=== PATIENT | female | born 1965 | race Caucasian/White ===

== ENCOUNTER → 2016-12-21 | Outpatient (CLI) | payer OTHER ==
[2016-12-21 15:33] VITALS: BP 126/68; PULSE 77; RESP 20; TEMP 98.2; BMI 38.5
--- NOTE | 2016-12-21 15:59 | P.HPBAR ---
Bariatric H&P - History & Physicial H&P Date: 12/21/16 History & Physicial: Visit/CC: wants her band out Patient initial contact: Initial weight: 98.566 kg Initial weight in pounds: 217.30 Height: 5 ft 3 in Initial BMI: 38.5 Last weight: Current weight: 98.566 kg Current weight in pounds: 217.30 Current BMI: 38.5 [place] body weight (based on NIH guidelines): 52.163 kg Excess body weight loss: 0.0% The patient is a 51 year-old F who presents for Bariatric Assessment. Patient here today for evaluation of lap band. Patient had her lap band initially placed in 2008. Patient has had poor follow-up recently. Despite previously following the prescribed dietary and exercise regimen the patient has had marginal weight loss. She believes that she started her weight loss journey in the to 60 range. She was as low as the low 200 range currently she weighs 2: 15. Patient has had episodes of dysphagia and occasional vomiting. Denies pain. No seen and reflux. The patient is interested in band removal and possible conversion. Review of Systems The patient denies any acute changes in vision or hearing, no dysphagia, no chest pain or shortness of breath, no dysuria or hematuria, no headache, no runny nose, no rectal bleeding or melena, no unexplained weight loss Past Medical History Past Medical History: No Reported History History of Any Multi-Drug Resistant Organisms: None Reported Past Surgical History: Bariatric Surgery, Cholecystectomy, Tubal Ligation Additional Past Surgical History / Comment(s): lap band 2008 Past Psychological History: Anxiety, Depression Smoking Status: Former smoker Past Alcohol Use History: None Reported Past Drug Use History: None Reported Surgical - Exam Vital Signs Temp Pulse Resp BP 98.2 F 77 20 126/68 12/21/16 15:29 12/21/16 15:29 12/21/16 15:29 12/21/16 15:29 Physical exam: General: Well-developed, well-nourished HEENT: Normocephalic, sclerae nonicteric Abdomen: Nontender, nondistended Extremities: No edema Neuro: Alert and oriented Bariatric Assessment & Plan (1) Morbid obesity Narrative/Plan: Patient's band will be emptied because of her ongoing issues with dysphagia. The patient has artery attended a bariatric seminar. Options of bypass and sleeve gastrectomy as options for conversion were discussed in detail. The patient is not interested in gastric bypass at this point. We'll discuss her case with our billing department to determine appropriate coverage for conversion. The patient's lap band port was palpated. The site was aseptically prepped. 1% lidocaine was infiltrated into the subcutaneous tissues through a diabetic syringe. The Curry needle was advanced into the port. Aspiration took place. A total of 8 ml of fluid was evacuated. Pressure was held and a sterile dressing was applied. Status: Acute Bariatric Checklist Checklist: Plan: Checklist: EGD: 1. Hiatal hernia: 2. H. Pylori: HgbA1c: Vitamin D: Smoking: Former smoker Primary care physician referral: Dr Gibbs Psychiatry clearance: Cardiology clearance: Sleep study: Diet journal: VTE risk score: VTE risk level: Rehab needs at discharge:
== END | disposition home or self-care (01) ==
LOC: BARWHC3 14:58
PROVIDERS: ATTEND Surgery
DX: E66.01 Morbid (severe) obesity due to excess calories (principal); F32.9 Major depressive disorder, single episode, unspecified; F41.9 Anxiety disorder, unspecified; Z87.891 Personal history of nicotine dependence
CPT/HCPCS: 99212

== ENCOUNTER 2017-02-11 10:22 | Day surgery (SDC) | payer OTHER ==
[2017-02-09 15:04] VITALS: BMI 41.1
[~2017-02-11 10:22] MED LIST: LACTATED RINGERS 1,000 ML IV SCH
[2017-02-11 12:03] VITALS: RESP 16; TEMP 98.3
[2017-02-11] MEDS ORDERED: GLYCOPYRROLATE 0.2 MG/ML 2 ML VIAL ONE (12:24)
[2017-02-11] MEDS ORDERED: LIDOCAINE 1% INJ 10MG/ML (20 ML MDV) ONE (12:24)
[2017-02-11] MEDS ORDERED: PROPOFOL 10 MG/ML 20 ML VIAL IV ONE (12:24)
--- NOTE | 2017-02-11 12:25 | P.GSHP ---
History of Present Illness H&P Date: 02/11/17 Chief Complaint: GERD Patient here today for upper endoscopy. She has mild reflux at times. She is here as a presurgical workup also for upcoming band removal and sleeve gastrectomy. She has done well after her band was emptied with no further dysphagia. Reflux improved as well. Past Medical History Past Medical History: No Reported History History of Any Multi-Drug Resistant Organisms: None Reported Past Surgical History: Bariatric Surgery, Cholecystectomy, Tubal Ligation Additional Past Surgical History / Comment(s): lap band 2008. COLONOSCOPY Past Anesthesia/Blood Transfusion Reactions: No Reported Reaction Smoking Status: Former smoker - Past Family History Mother Family Medical History: Cancer Father Family Medical History: Cancer Medications and Allergies Home Medications Medication Instructions Recorded Confirmed Type Cholecalciferol [Vitamin D3] 1,000 mg PO DAILY 04/07/16 02/09/17 History Escitalopram [Lexapro] 10 mg PO HS 04/07/16 02/09/17 History Multivitamins, Thera [Multivitamin] 1 each PO DAILY 04/07/16 02/09/17 History Niacin (Inositol Niacinate) 50 mg PO DAILY 04/07/16 02/09/17 History [Niacin Flush Free 500 mg Cap] buPROPion HCL [Wellbutrin XL] 300 mg PO DAILY 04/07/16 02/09/17 History Allergies Allergy/AdvReac Type Severity Reaction Status Date / Time No Known Allergies Allergy Verified 02/11/17 12:03 Surgical - Exam Vital Signs Temp Pulse Resp BP Pulse Ox 98.3 F 74 16 143/82 97 02/11/17 12:01 02/11/17 12:01 02/11/17 12:01 02/11/17 12:01 02/11/17 12:01 Physical exam: General: Well-developed, well-nourished HEENT: Normocephalic, sclerae nonicteric Abdomen: Nontender, nondistended Extremities: No edema Neuro: Alert and oriented Assessment and Plan (1) GERD (gastroesophageal reflux disease) Narrative/Plan: Will proceed with upper endoscopy at this time. Status: Acute
--- NOTE | 2017-02-11 12:35 | P.PCN ---
Date of Procedure: 02/11/17 Procedure(s) Performed: Preoperative Dx: GERD, presurgical Postoperative Dx: Mild gastritis Procedure: EGD with Bx Anesthesia: Sedation Endoscopist: Dr. Lozoya Specimens: Antrum Endoscopic Procedure: The patient was on the endoscopy table in the left decubitus position. The Olympus gastroscope was inserted into the oropharynx and passed under direct visualization to the region of the third portion of the duodenum. From that point the scope was slowly withdrawn inspecting all surfaces carefully. There were no neoplastic inflammatory or polypoid lesions throughout the duodenum. The pylorus was widely patent. The stomach was carefully inspected. There was gastritis present. A biopsy of the antrum took place to rule out H. pylori. Retroflexion revealed a normal hiatus and normal band plication. The esophagus was then carefully examined. There were no neoplastic inflammatory or polypoid lesions throughout the visualized esophagus. The patient was then taken to the recovery room in stable condition per anesthesia guidelines. Recommendations: Await biopsies results. Follow-up in the bariatric clinic
[2017-02-11 12:57] VITALS: BP 131/79
[2017-02-11 12:58] VITALS: PULSE 72
== END 2017-02-11 13:11 | disposition home or self-care (01) ==
LOC: ORWHC2ENDO 10:22
PROVIDERS: ATTEND Surgery
DX: K21.9 Gastro-esophageal reflux disease without esophagitis (principal); K29.50 Unspecified chronic gastritis without bleeding; E66.01 Morbid (severe) obesity due to excess calories; Z68.41 Body mass index [BMI] 40.0-44.9, adult; Z98.84 Bariatric surgery status; Z87.891 Personal history of nicotine dependence; Z79.899 Other long term (current) drug therapy
CPT/HCPCS: 43239; 88305; 88342; J2001; J2704

== ENCOUNTER → 2017-02-21 | Outpatient (CLI) | payer OTHER ==
--- NOTE | 2017-02-21 13:10 | MM ---
Reason for exam: screening (asymptomatic). Last mammogram was performed 1 year ago. History: Patient is postmenopausal. Physical Findings: A clinical breast exam by your physician is recommended on an annual basis and results should be correlated with mammographic findings. MG Screening Mammo w CAD Bilateral CC and MLO view(s) were taken. Prior study comparison: February 20, 2016, bilateral MG 3d screening mammo w/cad. February 18, 2015, bilateral MG screening mammo w CAD. There are scattered fibroglandular densities. Finding: There are typically benign round calcifications in both breasts. There is no discrete abnormality. ASSESSMENT: Benign, BI-RAD 2 RECOMMENDATION: Routine screening mammogram of both breasts in 1 year.
== END | disposition home or self-care (01) ==
LOC: RADMAMWWP 07:51
PROVIDERS: ATTEND Family Medicine
DX: Z12.31 Encounter for screening mammogram for malignant neoplasm of breast (principal)

== ENCOUNTER 2017-03-04 07:45 | Inpatient (IN) | payer OTHER ==
[~2017-03-04 07:45] MED LIST changes: +DEXAMETHASONE SOD PHOSPHATE 10 MG/ML 1 ML VIAL IV ONE; +METHYLENE BLUE 30 MG in DEXTROSE 5% IN WATER 500 ML IRRIGATION ONE; +MIDAZOLAM 2 MG/2 ML VIAL IV PRN; +ONDANSETRON 4 MG/2 ML VIAL IVP ONE; +Pre Op ABX Message 1 EACH MISC MISCELLANE ONE; +SCOPOLAMINE 1.5MG/72HR PATCH TRANSDERM ONE; +ceFAZolin 2 GM in SODIUM CHLORIDE 0.9% 100 ML IVPB ONE
--- NOTE | 2017-03-04 09:38 | P.GSHP ---
History of Present Illness H&P Date: 03/04/17 Chief Complaint: Morbid obesity Patient is well known to our service. She had a lap band placed in 2008. She' s had troubles with dysphagia and vomiting. Her weight loss has been marginal. She is scheduled today for band removal and sleeve gastrectomy. Her recent upper endoscopy showed no hiatal hernia. Patient has a history of hypertension , arthritis, and chronic back pain. Past Medical History Past Medical History: No Reported History Additional Past Medical History / Comment(s): varicose veins History of Any Multi-Drug Resistant Organisms: None Reported Past Surgical History: Bariatric Surgery, Cholecystectomy, Tubal Ligation Additional Past Surgical History / Comment(s): lap band 2008 Past Anesthesia/Blood Transfusion Reactions: No Reported Reaction, Motion Sickness Additional Past Anesthesia/Blood Transfusion Reaction / Comment(s): no hx blood transfusion Smoking Status: Former smoker - Past Family History Mother Family Medical History: Cancer Father Family Medical History: Cancer Medications and Allergies Home Medications Medication Instructions Recorded Confirmed Type Cholecalciferol [Vitamin D3] 2,000 unit PO DAILY 04/07/16 02/25/17 History Escitalopram [Lexapro] 10 mg PO HS 04/07/16 02/25/17 History Multivitamins, Thera [Multivitamin] 1 each PO DAILY 04/07/16 02/25/17 History Niacin (Inositol Niacinate) 500 mg PO DAILY 04/07/16 02/25/17 History [Niacin Flush Free 500 mg Cap] buPROPion XL [Wellbutrin Xl] 150 mg PO QAM 02/25/17 02/25/17 History Allergies Allergy/AdvReac Type Severity Reaction Status Date / Time No Known Allergies Allergy Verified 02/25/17 15:01 Surgical - Exam Physical exam: General: Well-developed, well-nourished HEENT: Normocephalic, sclerae nonicteric Abdomen: Nontender, nondistended Extremities: No edema Neuro: Alert and oriented Assessment and Plan (1) Morbid obesity Narrative/Plan: Will proceed with sleeve gastrectomy and band removal at this time. Risks of bleeding, infection, stricture, vomiting, leak, abscess, fistula formation, poor weight loss, reflux, conversion, IN, PE, DVT, and were discussed. She understands and wishes to proceed. Status: Acute Code(s): E66.01 - MORBID (SEVERE) OBESITY DUE TO EXCESS CALORIES SNOMED Code(s): 104762586
[2017-03-04] MEDS ORDERED: LIDOCAINE 1% 20 ML VIAL (10MG/ML) FOR IV START INTRADERMA ONE (12:07)
[2017-03-04] MEDS ORDERED: ENOXAPARIN 40 MG/0.4 ML SYRINGE SQ ONE (13:00)
[2017-03-04] MEDS ORDERED: NEOSTIGMINE 1 MG/ML 10 ML VIAL ONE (13:09)
[2017-03-04] MEDS ORDERED: SUCCINYLCHOLINE CHLORIDE 100 MG/5 ML SYR IV ONE (13:09)
[2017-03-04] MEDS ORDERED: PROPOFOL 10 MG/ML 20 ML VIAL IV ONE (13:09)
[2017-03-04] MEDS ORDERED: ePHEDrine SULFATE/0.9% NACL/PF 50 MG/5 ML SYRINGE IV ONE (13:09)
[2017-03-04] MEDS ORDERED: LIDOCAINE 1% INJ 10MG/ML (20 ML MDV) ONE (13:09)
[2017-03-04] MEDS ORDERED: GLYCOPYRROLATE 0.2 MG/ML 2 ML VIAL ONE (13:09)
[2017-03-04] MEDS ORDERED: METHYLENE BLUE 10 MG/ML (10 ML VIAL) ONE (13:09)
[2017-03-04] MEDS ORDERED: MIDAZOLAM 2 MG/2 ML VIAL ONE (13:09)
[2017-03-04] MEDS ORDERED: fentaNYL (PF) 50 MCG/ML 2 ML AMP ONE (13:09)
[2017-03-04] MEDS ORDERED: ROCURONIUM BROMIDE 10 MG/ML 10 ML VIAL IV ONE (13:09)
[2017-03-04] MEDS ORDERED: BUPIVACAINE (PF) 0.25% 30 ML VIAL SQ ONE ×3 (13:43)
[2017-03-04] MEDS ORDERED: LACTATED RINGERS 1,000 ML IV ONE (14:43)
[2017-03-04] MEDS: HYDROmorphone 0.5 MG/0.5 ML SYRINGE IVP PRN ×4 (16:07→16:31)
[2017-03-04] MEDS ORDERED: HYDROmorphone 1 MG/ML 1 ML SYRINGE IVP PRN (16:49)
[2017-03-04] MEDS ORDERED: diphenhydrAMINE 50 MG/ML 1 ML VIAL IVP PRN (16:49)
[2017-03-04] MEDS ORDERED: SIMETHICONE 40 MG/0.6 ML DROPS 2,000 MG/30 ML BOTTLE PO PRN (16:49)
[2017-03-04] MEDS ORDERED: NALOXONE 0.4 MG/ML 1 ML VIAL IV PRN (16:49)
[2017-03-04] MEDS ORDERED: HYOSCYAMINE ORAL DROPS 1.875 MG/15 ML BOTTLE PO PRN (16:49)
--- NOTE | 2017-03-04 16:58 | P.OP ---
Date of Procedure: 03/04/17 Procedure(s) Performed: PREOPERATIVE DIAGNOSIS: Morbid obesity, hypertension, arthritis, back pain POSTOPERATIVE DIAGNOSIS: Same PROCEDURE: Laparoscopic sleeve gastrectomy SURGEON: Devora EBL: Minimal ANESTHESIA: General COMPLICATIONS: None OPERATIVE PROCEDURE: Patient was placed in the operating table in the supine position. She was placed under general anesthesia at that time. The abdomen was prepped and draped in sterile fashion after the patient was placed in lithotomy. The previous port incision was re-incised. The port was able to be removed using the cautery. Through this site a 5 mm optical trocar was used to enter the abdominal cavity. Insufflation took place to 15 millimeters mercury. The patient had adhesions in the abdomen. This was related to the prior lap band placement and also open cholecystectomy. A 5 mm optical trocar was placed in the left lateral upper quadrant as well as a 15 mm trocar in the supraumbilical location. Through these 3 trochars I was able to lyse adhesions using both blunt dissection and the LigaSure device. Additional 5 mm trocar was then placed in the right upper quadrant. An additional right subxiphoid 5 mm trocar was then placed under direct visualization and then removed. Later during the procedure and additional 5 mm trocar was placed superior to the port incision to help with our visualization of the hiatus and proximal stomach. The liver was retracted using a medium Alex liver retractor through the right subxiphoid trocar site. The adhesions between the lap band and the posterior aspect of the left lobe of the liver was divided using both blunt dissection and cautery. The band plication was then fully divided using both sharp dissection and blunt dissection. The hiatus was inspected. The patient had no visible hiatal hernia At that point I moved to the mid aspect of the greater curvature the stomach. The short gastric vasculature was divided using a LigaSure device proximally. I then switched and divided the short gastrics distally to a 3-4 cm from the pylorus. The dissection took place up to the left diaphragmatic crura at that point. The posterior short gastrics were likewise divided using the LigaSure device. The posterior lateral band plication was taken down as well as this time. The thick fibrous peel on the gastric wall was removed sharply. Once the stomach was fully mobilized the blunt tipped 40-[place] bougie dilator was advanced into the stomach and advanced all the way to the prepyloric location. A black echelon 60 stapler was utilized and fired tangentially across the antrum taking care to avoid narrowing at the incisura angularis. Subsequent firings of the stapler took place. A total of 4 green echelon 60 staplers with seam guard took place proximally staying on the outer edge of our dilator. The oral gastric tube was reinserted. The stomach was insufflated with approximately 100 mL of methylene blue. No evidence of leak or obstruction was seen. The distal aspect of the sleeve was then reapproximated to the gastrosplenic and gastrocolic ligament using a short running 2-0 strata fix suture. This was done to prevent kinking or twisting of the sleeve. The stomach remnant and lap band was removed from the 15 mm trocar site without difficulty. The fascia at the 15 more site was closed using interrupted 0 Vicryl sutures with the laparoscopic suture passer and Jonel Lit technique. The insufflation was evacuated. The subcutaneous fat at the previous port incision was closed using 3-0 Vicryl sutures. The skin at all 6 incisions were closed using 4-0 Monocryl sutures. Steri-Strips and sterile dressings were then applied. DISPOSITION: Stable to recovery room
[2017-03-04 17:41] VITALS: BMI 39.3
[2017-03-04] MEDS: ALBUTEROL NEBULIZED 2.5 MG/3 ML INHALATION SCH (19:13)
--- NOTE | 2017-03-04 19:19 | P.CONS ---
History of Present Illness - Reason for Consult Perioperative consultation management - History of Present Illness Patient was admitted for lab and removal and sleeve gastrectomy patient successfully underwent surgery patient is to come in today after anesthesia did not pass gas it sluggish bowel sounds denied any fever, chills, nausea, vomiting , abdominal pain, dysuria. Review of Systems REVIEW OF SYSTEMS: CONSTITUTIONAL: No fever, no malaise, no fatigue. HEENT: No recent visual problems or hearing problems. Denied any sore throat. CARDIOVASCULAR: No chest pain, orthopnea, PND, no palpitations, no syncope. PULMONARY: No shortness of breath, no cough, no hemoptysis. GASTROINTESTINAL: No diarrhea, no nausea, no vomiting, no abdominal pain. Normoactive bowel sounds. NEUROLOGICAL: No headaches, no weakness, no numbness. HEMATOLOGICAL: Denies any bleeding or petechiae. GENITOURINARY: Denies any burning micturition, frequency, or urgency. MUSCULOSKELETAL/RHEUMATOLOGICAL: Denies any joint pain, swelling, or any muscle pain. ENDOCRINE: Denies any polyuria or polydipsia. The rest of the 14-point review of systems is negative. Past Medical History Past Medical History: No Reported History Additional Past Medical History / Comment(s): varicose veins History of Any Multi-Drug Resistant Organisms: None Reported Past Surgical History: Bariatric Surgery, Cholecystectomy, Tubal Ligation Additional Past Surgical History / Comment(s): lap band 2009 Past Anesthesia/Blood Transfusion Reactions: No Reported Reaction, Motion Sickness Additional Past Anesthesia/Blood Transfusion Reaction / Comm: no hx blood transfusion Smoking Status: Never smoker - Past Family History Mother Family Medical History: Cancer Father Family Medical History: Cancer Sister(s) Family Medical History: Cancer Medications and Allergies Home Medications Medication Instructions Recorded Confirmed Type Cholecalciferol [Vitamin D3] 2,000 unit PO DAILY 04/07/16 03/04/17 History Escitalopram [Lexapro] 10 mg PO HS 04/07/16 03/04/17 History Multivitamins, Thera [Multivitamin] 1 tab PO DAILY 04/07/16 03/04/17 History Niacin (Inositol Niacinate) 500 mg PO DAILY 04/07/16 03/04/17 History [Niacin Flush Free 500 mg Cap] buPROPion XL [Wellbutrin Xl] 150 mg PO QAM 02/25/17 03/04/17 History Hydrocodone/Acetaminophen [[place] 1 - 2 each PO Q4HR PRN #30 tab 03/04/17 Rx 5-325] Omeprazole [PriLOSEC] 20 mg PO AC-BRKFST #90 cap 03/04/17 Rx Allergies Allergy/AdvReac Type Severity Reaction Status Date / Time No Known Allergies Allergy Verified 03/04/17 17:25 Physical Exam Vitals: Vital Signs Temp Pulse Pulse Resp BP Pulse Ox 03/04/17 17:35 96.3 F L 77 18 123/62 91 L 03/04/17 16:46 83 16 134/62 98 03/04/17 16:30 72 16 130/66 98 03/04/17 16:15 88 16 134/67 98 03/04/17 16:03 88 16 132/68 98 03/04/17 15:55 97.2 F L 95 14 132/79 98 03/04/17 12:01 98.8 F 83 16 126/82 99 Intake and Output 03/04/17 03/04/17 03/04/17 06:59 14:59 22:59 Intake Total 1700 0 Output Total 120 Balance 1580 0 Intake: IV 1700 0 Output: Urine 100 Estimated Blood Loss 20 Other: Weight 97.522 kg 97.522 kg Patient Weight 03/05/17 06:59 Weight 97.522 kg PHYSICAL EXAMINATION: GENERAL: The patient is alert and oriented x3, not in any acute distress. Well developed, well nourished. HEENT: Pupils are round and equally reacting to light. EOMI. No scleral icterus. No conjunctival pallor. Normocephalic, atraumatic. No pharyngeal erythema. No thyromegaly. CARDIOVASCULAR: S1 and S2 present. No murmurs, rubs, or gallops. PULMONARY: Chest is clear to auscultation, no wheezing or crackles. ABDOMEN: Soft, surgical binder in place, sluggish bowel sounds MUSCULOSKELETAL: No joint swelling or deformity. EXTREMITIES: No cyanosis, clubbing, or pedal edema. NEUROLOGICAL: Gross neurological examination did not reveal any focal deficits. SKIN: No rashes. Assessment and Plan Plan: #1 postoperative day 0 mostly gastrectomy: Incentive spirometry pain management DVT prophylaxis as per primary service. #2 depression patient will be resumed on her antidepressants #3 gastroesophageal reflux disease patient was started on proton pulmonary better #4 hyperlipidemia continue with niacin
[2017-03-04] MEDS: 0.9% NACL WITH KCL 20 MEQ/L 1,000 ML IV SCH (20:24)
[2017-03-04] MEDS: ESCITALOPRAM 10 MG TAB PO SCH (20:25)
[2017-03-05] MEDS: ONDANSETRON 4 MG/2 ML VIAL IVP PRN ×3 (00:20→16:23)
[2017-03-05 07:24] LABS: Basophils % (A) 0 %; CH 29.5; CHCM 32.5; Eosinophils % (A) 0 %; HCT 37.8 % (34.0-46.0); HDW 2.49; HGB 12.2 gm/dL (11.4-16.0); Luc # (Auto) 0.11; Luc % (Auto) 1; Lymphocytes # (A) 1.1 k/uL (1.0-4.8); Lymphocytes % (A) 13 %; MCH 29.5 pg (25.0-35.0); MCHC 32.3 g/dL (31.0-37.0); Mean Platelet Volume 7.4; Monocytes # (A) 0.6 k/uL (0-1.0); Monocytes % (A) 7 %; Neutrophils % (A) 79 %; RBC 4.15 m/uL (3.80-5.40); RDW 14.1 % (11.5-15.5); WBC 8.9 k/uL (3.8-10.6); WBC (Perox) 9.53
[2017-03-05 07:31] LABS: MCV 91.2 fL (80.0-100.0)
[2017-03-05 07:39] LABS: Anion Gap 7 mmol/L; Blood Urea Nitrogen 6 mg/dL (7-17); Carbon Dioxide 25 mmol/L (22-30); Chloride 108 mmol/L (98-107); Non-African American GFR(MDRD) >60 (>60 ml/min/1.73 sqM); Phosphorus 2.9 mg/dL (2.5-4.5); Potassium 4.4 mmol/L (3.5-5.1); Sodium 140 mmol/L (137-145)
[2017-03-05] MEDS ORDERED: 1: MVI, ADULT NO.4 WITH VIT K 10 ML, THIAMINE 100 MG, FOLIC ACID 1 MG, POTASSIUM CHLORID IV SCH ×6 (08:00)
[2017-03-05] MEDS: ALBUTEROL NEBULIZED 2.5 MG/3 ML INHALATION SCH ×4 (08:47→20:07)
[2017-03-05] MEDS: ENOXAPARIN 40 MG/0.4 ML SYRINGE SQ SCH (09:08)
[2017-03-05] MEDS: 0.9% NACL WITH KCL 20 MEQ/L 1,000 ML IV SCH (09:08)
[2017-03-05] MEDS: PANTOPRAZOLE 40 MG/10 ML VIAL IV SCH (09:08)
--- NOTE | 2017-03-05 09:41 | FL ---
EXAMINATION TYPE: FL UGI DATE OF EXAM ORDERED: 03/05/2017 9:01 AM HISTORY: Gastric sleeve procedure. COMPARISON: None. FINDINGS: The patient drank contrast with ease. There is prompt egress of contrast from the esophagu s into the gastric sleeve. The ligament of Treitz is in the normal location. Note is made of a previous cholecystectomy. There is a small amount of free air. There is no evidence of extravasation. IMPRESSION: STATUS POST GASTRIC SLEEVE PROCEDURE.
[2017-03-05] MEDS: KETOROLAC 30 MG/ML 1 ML VIAL IVP SCH ×2 (09:54→17:21)
--- NOTE | 2017-03-05 10:17 | P.PN ---
Subjective Progress Note Date: 03/05/17 Principal diagnosis: Morbid obesity Patient complaining of nausea. She was dizzy earlier. Pain is not much of a problem for her she states. White blood cell count is normal. Upper GI shows no evidence of leak or obstruction. White blood cell count 8.9. Objective - Vital Signs Vital signs: Vital Signs Temp 98 F 03/05/17 07:00 Pulse 62 03/05/17 07:00 Resp 15 03/05/17 07:00 BP 115/73 03/05/17 07:00 Pulse Ox 97 03/05/17 07:00 Intake & Output 03/04/17 03/05/17 03/05/17 18:59 06:59 18:59 Intake Total 1700 2530 Output Total 120 Balance 1580 2530 Weight 97.522 kg Intake: IV 1700 Intake, IV Titration 2400 Amount 0.9% NaCl with KCl 20 Meq 2400 /l 1,000 ml @ 150 mls/hr IV .Q6H40M [facility] Rx#: [id number] Oral 130 Output: Urine 100 Estimated Blood Loss 20 Other: Voiding Method Toilet # Voids 1 - Exam Abdomen: Soft, nondistended, mild tenderness, dressings intact - Labs CBC & Chem 7: 03/05/17 06:38 03/05/17 06:38 Labs: Abnormal Lab Results - Last 24 Hours (Table) 03/05/17 Range/Units 06:38 Chloride 108 H (98-107) mmol/L BUN 6 L (7-17) mg/dL Calcium 8.0 L (8.4-10.2) mg/dL Assessment and Plan (1) Morbid obesity Narrative/Plan: begin Bariatric liquid diet. Add scopolamine patch. Ambulate. Current Visit: No Status: Acute Code(s): E66.01 - MORBID (SEVERE) OBESITY DUE TO EXCESS CALORIES SNOMED Code(s): 339253753
[2017-03-05] MEDS ORDERED: MULTIVITAMINS, THERA 1 EACH TAB PO SCH (12:00)
[2017-03-05] MEDS: buPROPion XL 150 MG TAB.ER.24H PO SCH (17:24)
[2017-03-05] MEDS: NIACIN TR 500 MG CAPSULE.ER PO SCH (17:25)
[2017-03-05] MEDS: ESCITALOPRAM 10 MG TAB PO SCH (22:25)
[2017-03-06] MEDS: ENOXAPARIN 40 MG/0.4 ML SYRINGE SQ SCH ×2 (00:21→08:53)
[2017-03-06] MEDS: KETOROLAC 30 MG/ML 1 ML VIAL IVP SCH ×3 (00:21→11:00)
[2017-03-06] MEDS: ALBUTEROL NEBULIZED 2.5 MG/3 ML INHALATION SCH ×3 (08:44→15:32)
[2017-03-06] MEDS: PANTOPRAZOLE 40 MG/10 ML VIAL IV SCH (08:53)
[2017-03-06] MEDS: buPROPion XL 150 MG TAB.ER.24H PO SCH (08:53)
[2017-03-06] MEDS: NIACIN TR 500 MG CAPSULE.ER PO SCH (08:53)
[2017-03-06 09:06] VITALS: BP 135/65; RESP 15; TEMP 96.7
--- NOTE | 2017-03-06 09:40 | P.PN ---
Subjective Progress Note Date: 03/06/17 Principal diagnosis: Morbid obesity Patient doing better today. Her pain is minimal. She is tolerating liquids. No further nausea. No labs from today. She is afebrile. No tachycardia. Objective - Vital Signs Vital signs: Vital Signs Temp 96.7 F L 03/06/17 07:00 Pulse 60 03/06/17 08:56 Resp 15 03/06/17 07:00 BP 135/65 03/06/17 07:00 Pulse Ox 97 03/06/17 07:00 Intake & Output 03/05/17 03/06/17 03/06/17 19:59 06:59 18:59 Intake Total 120 Output Total Balance 120 Weight Intake: Intake, IV Titration Amount 0.9% NaCl with KCl 20 Meq /l 1,000 ml @ 150 mls/hr IV .Q6H40M [facility] Rx#: [id number] Oral 120 Output: Urine Other: Voiding Method # Voids - Exam Abdomen: Soft, nondistended, mild incisional tenderness, incisions clean and dry - Labs CBC & Chem 7: 03/05/17 06:38 03/05/17 06:38 Assessment and Plan (1) Morbid obesity Narrative/Plan: Continue bariatric liquid diet. Monitor oral intake today. Possible discharge later today. Current Visit: No Status: Acute Code(s): E66.01 - MORBID (SEVERE) OBESITY DUE TO EXCESS CALORIES SNOMED Code(s): 039402060
[2017-03-06 11:41] VITALS: PULSE 60
== END 2017-03-06 15:39 | disposition home or self-care (01) | DRG 621 ==
LOC: 2ORWHC 11:41 → 3SUR 15:42
PROVIDERS: ADMIT Surgery; ATTEND Surgery
PROC: 0DB64Z3 Excision of Stomach, Percutaneous Endoscopic Approach, Vertical (ICD-10-PCS; principal; 2017-03-04 13:30)
PROC: 0DP64CZ Removal of Extraluminal Device from Stomach, Percutaneous Endoscopic Approach (ICD-10-PCS; 2017-03-04 13:30)
DX: E66.01 Morbid (severe) obesity due to excess calories (principal); R13.10 Dysphagia, unspecified; I10 Essential (primary) hypertension; M19.90 Unspecified osteoarthritis, unspecified site; G89.29 Other chronic pain; M54.9 Dorsalgia, unspecified; R11.2 Nausea with vomiting, unspecified; R42 Dizziness and giddiness; K21.9 Gastro-esophageal reflux disease without esophagitis; E78.5 Hyperlipidemia, unspecified; F32.9 Major depressive disorder, single episode, unspecified; Z79.899 Other long term (current) drug therapy; Z87.891 Personal history of nicotine dependence; Z68.39 Body mass index [BMI] 39.0-39.9, adult; Z98.84 Bariatric surgery status
CPT/HCPCS: 74240; 80051; 82310; 82565; 83735; 84100; 84520; 85025; 88307; 94640

== ENCOUNTER → 2017-03-15 | Outpatient (CLI) | payer OTHER ==
[2017-03-15 15:37] VITALS: BP 105/63; PULSE 73; RESP 18; TEMP 98.2; BMI 36.8
--- NOTE | 2017-03-15 16:27 | P.BASOAP ---
Subjective Progress Note Date: 03/15/17 Principal diagnosis: Morbid obesity Patient doing well today. No pain. No heartburn. Denies hunger related issues. She's had about 50 g of protein daily. Also about 50-60 ounces of liquids daily. Excellent weight loss. She is almost 2 weeks postop. Objective - Vital Signs Vital signs: Vital Signs Temp 98.2 F 03/15/17 15:32 Pulse 73 03/15/17 15:32 Resp 18 03/15/17 15:32 BP 105/63 03/15/17 15:32 Pulse Ox Intake & Output 03/14/17 03/15/17 03/15/17 18:59 06:59 18:59 Weight 94.483 kg - Exam Abdomen: Soft, nondistended, mild incisional tenderness, incisions clean and dry Assessment/Plan (1) Morbid obesity Narrative/Plan: Continue increasing protein and liquid intake. Continue antiacid therapy for now. Follow-up evaluation 2 weeks. We'll check one month labs at that point. Plan: Date: 03/15/17 Initial Weight: 98.566 kg Initial BMI: 38.5 Current Weight: 94.483 kg Current BMI: 36.8 Type of Surgery: Total Volume in Band: 0 Previous Volume: Volume Removed: Volume Added: Band Size:
== END ==
LOC: BARWHC3 14:43
PROVIDERS: ATTEND Surgery
DX: E66.01 Morbid (severe) obesity due to excess calories (principal); Z68.36 Body mass index [BMI] 36.0-36.9, adult
CPT/HCPCS: 97803; 99211

== ENCOUNTER → 2017-05-24 | Outpatient (CLI) | payer OTHER ==
[2017-05-24 15:16] VITALS: BP 104/74; PULSE 66; RESP 16; TEMP 98; BMI 33.3
--- NOTE | 2017-05-24 15:31 | P.BASOAP ---
Subjective Progress Note Date: 05/24/17 Principal diagnosis: Morbid obesity Patient returns for evaluation. Last seen on 04/12. Labs done at that time showed a low iron. She started supplementation. No nausea vomiting, no heartburn. Still on antiacids. 7 pound weight loss since last visit. Better protein intake. Energy level is improved. Objective - Vital Signs Vital signs: Vital Signs Temp 98.0 F 05/24/17 15:13 Pulse 66 05/24/17 15:13 Resp 16 05/24/17 15:13 BP 104/74 05/24/17 15:13 Pulse Ox Intake & Output 05/23/17 05/24/17 05/24/17 18:59 06:59 18:59 Weight 85.417 kg - Exam Abdomen: Soft, nontender, nondistended Assessment/Plan (1) Morbid obesity Narrative/Plan: Patient doing well postoperatively. Continue dietary and exercise regimen. Follow-up 6 weeks. We'll check 3 months labs at that visit. Continue monitoring protein intake. Continue antiacids for the first 6 months. Plan: Date: 05/24/17 Initial Weight: 98.566 kg Initial BMI: 38.5 Current Weight: 85.417 kg Current BMI: 33.3 Type of Surgery: Total Volume in Band: 0 Previous Volume: Volume Removed: Volume Added: Band Size:
== END | disposition home or self-care (01) ==
LOC: BARWHC3 14:55
PROVIDERS: ATTEND Surgery
DX: Z48.815 Encounter for surgical aftercare following surgery on the digestive system (principal); E66.01 Morbid (severe) obesity due to excess calories; Z68.33 Body mass index [BMI] 33.0-33.9, adult
CPT/HCPCS: 99211

== ENCOUNTER → 2017-07-12 | Outpatient (CLI) | payer OTHER ==
[2017-07-12 16:01] VITALS: BMI 32.4
[2017-07-12 16:24] LABS: HCT 38.1 % (34.0-46.0); HGB 12.5 gm/dL (11.4-16.0); MCH 29.2 pg (25.0-35.0); MCHC 32.7 g/dL (31.0-37.0); MCV 89.2 fL (80.0-100.0); Mean Platelet Volume 7.7; Platelet Count 213 k/uL (150-450); RBC 4.27 m/uL (3.80-5.40); RDW 13.4 % (11.5-15.5); WBC 5.1 k/uL (3.8-10.6)
[2017-07-12 16:53] VITALS: BP 119/80; PULSE 70; TEMP 98.1
--- NOTE | 2017-07-12 16:56 | P.BASOAP ---
Subjective Progress Note Date: 07/12/17 Principal diagnosis: Morbid obesity Patient returns for follow-up. She is approximate 4 month postop. She has lost 5 pounds. She had emesis to tommy on 2 separate occasions. She is due for 3 month labs. She still takes her antiacids. Denies reflux. Objective - Vital Signs Vital signs: Vital Signs Temp 98.1 F 07/12/17 16:49 Pulse 70 07/12/17 16:49 Resp BP 119/80 07/12/17 16:49 Pulse Ox Intake & Output 07/11/17 07/12/17 07/12/17 18:59 06:59 18:59 Weight 83.098 kg - Exam Abdomen: Soft, nontender, nondistended - Labs CBC & Chem 7: 07/12/17 16:04 Assessment/Plan (1) Morbid obesity Narrative/Plan: Continue antiacids. Avoid Pasta for now. Check 3 months labs. Follow-up for 6 weeks. Plan: Date: 07/12/17 Initial Weight: 98.566 kg Initial BMI: 38.5 Current Weight: 83.098 kg Current BMI: 32.4 Type of Surgery: Total Volume in Band: 0 Previous Volume: Volume Removed: Volume Added: Band Size:
[2017-07-13 00:58] LABS: Vitamin D 25 Hydroxy 44.8 ng/mL (30.0-100.0)
== END | disposition home or self-care (01) ==
LOC: BARWHC3 14:16
PROVIDERS: ATTEND Surgery
DX: E66.01 Morbid (severe) obesity due to excess calories (principal); K90.89 Other intestinal malabsorption; E55.9 Vitamin D deficiency, unspecified; Z71.3 Dietary counseling and surveillance; Z68.32 Body mass index [BMI] 32.0-32.9, adult
CPT/HCPCS: 36415; 82306; 82607; 83540; 84425; 85027; 97803; 99211

== ENCOUNTER → 2018-04-14 | Outpatient (CLI) | payer OTHER ==
--- NOTE | 2018-04-14 16:51 | BD ---
EXAMINATION TYPE: Axial Bone Density DATE OF EXAM: 04/14/2018 COMPARISON: NONE CLINICAL HISTORY: 53 YR OLD FEMALE....ICD-10 CODE: M85.80 SPECIFIED DOSORDER OF BONE Height: 62 Weight: 186 FRAX RISK QUESTIONS: NOTHING TO NOTE HERE RISK FACTORS HISTORY OF: Active: YES Diet low in dairy products/other sources of calcium: Postmenopausal woman: YES, AT 51 YRS OLD MEDICATIONS: Additional Medications: LEXAPRO, PRILOSEC,VIT D Additional History: ABDOMINAL SLEEVE PROCEDURE EXAM MEASUREMENTS: Bone mineral densitometry was performed using the [employer]. Bone mineral density as measured about the Lumbar spine is: ----- L1-L4(G/cm2): 1.280 T Score Values are as follows: ----- L1: -0.3 ----- L2: 0.8 ----- L3: 1.3 ----- L4: 1.3 ----- L1-L4: 1.1 Bone mineral density THIS IS HER FIRST BONE DENSITY......BASELINE STUDY Bone mineral density about the R hip (g/cm2): 1.036 Bone mineral density about the L hip (g/cm2): 1.073 T Score values are as follows: -----R Neck: -0.5 -----L Neck: -0.2 -----R Total: 0.2 -----L Total: 0.5 FRAX%s: THERE IS A 4.1% CHANCE OF A MAJOR OSTEOPOROTIC FX AND A 0.1% OF HIP FX.... PROBABILITY O F FX IN 10 YR TIME Bone mineral density BASELINE STUDY IMPRESSION: Normal (Values between +1 and -1 indicate normal bone mass). Consider repeating this study in 5 year s or sooner if there is some new clinical indication. NOTE: T-SCORE=SD OF THE YOUNG ADULT MEAN.
== END | disposition home or self-care (01) ==
LOC: RADBDWWP 08:07
PROVIDERS: ATTEND Family Medicine
DX: M85.80 Other specified disorders of bone density and structure, unspecified site (principal)
CPT/HCPCS: 77080

== ENCOUNTER → 2018-04-14 | Outpatient (CLI) | payer OTHER ==
--- NOTE | 2018-04-17 11:22 | MM ---
Reason for exam: screening (asymptomatic). Last mammogram was performed 1 year and 2 months ago. History: Patient is postmenopausal. Physical Findings: A clinical breast exam by your physician is recommended on an annual basis and results should be correlated with mammographic findings. MG Screening Mammo w CAD Bilateral CC and MLO view(s) were taken. Prior study comparison: February 21, 2017, bilateral MG screening mammo w CAD. February 20, 2016, bilateral MG 3d screening mammo w/cad. There are scattered fibroglandular densities. There are benign appearing round calcifications in the There is no discrete abnormality. ASSESSMENT: Benign, BI-RAD 2 RECOMMENDATION: Routine screening mammogram of both breasts in 1 year.
== END | disposition home or self-care (01) ==
LOC: RADMAMWWP 08:04
PROVIDERS: ATTEND Obstetrics & Gynecology
DX: Z12.31 Encounter for screening mammogram for malignant neoplasm of breast (principal)
CPT/HCPCS: 77067

== ENCOUNTER → 2019-04-19 | Outpatient (CLI) | payer OTHER ==
--- NOTE | 2019-04-20 14:14 | MM ---
Reason for exam: screening (asymptomatic). Last mammogram was performed 1 year ago. History: Patient is postmenopausal, has history of other cancer at age 54, and has history of endometrial cancer at age 52. Physical Findings: A clinical breast exam by your physician is recommended on an annual basis and results should be correlated with mammographic findings. MG Screening Mammo w CAD Bilateral CC and MLO view(s) were taken. Prior study comparison: April 14, 2018, bilateral MG screening mammo w CAD. February 21, 2017, bilateral MG screening mammo w CAD. There are scattered fibroglandular densities. No significant changes when compared with prior studies. ASSESSMENT: Benign, BI-RAD 2 RECOMMENDATION: Routine screening mammogram of both breasts in 1 year.
== END | disposition home or self-care (01) ==
LOC: RADMAMWWP 16:10
PROVIDERS: ATTEND Family Medicine
DX: Z12.31 Encounter for screening mammogram for malignant neoplasm of breast (principal)
CPT/HCPCS: 77067

== ENCOUNTER 2019-08-20 06:17 | Inpatient (IN) | payer OTHER ==
[2019-08-20] MEDS ORDERED: HYDROmorphone 0.5 MG/0.5 ML SYRINGE IVP STA (06:43)
[2019-08-20] MEDS ORDERED: SODIUM CHLORIDE 0.9% 1,000 ML IV STA (06:43)
[2019-08-20] MEDS ORDERED: ONDANSETRON 4 MG/2 ML VIAL IVP STA (06:43)
--- NOTE | 2019-08-20 06:47 | ED ---
Nausea/Vomiting/Diarrhea HPI - General Chief complaint: Nausea/Vomiting/Diarrhea Stated complaint: Abdominal Pain,Nausea Time Seen by Provider: 08/20/19 06:25 Source: patient, RN notes reviewed Mode of arrival: ambulatory Limitations: no limitations - History of Present Illness Initial comments: 54-year-old female with a past medical history of gastric sleeve and 2017, cholecystectomy presents to the emergency department for a chief complaint of upper abdominal pain. Patient states this has been on and off over the past few weeks or so but usually got better after a few minutes. However today this pain has been constant. States this started last night. Patient states it is an 8 out of 10 and is sharp in nature. She denies any radiating pain to the back. Admit to nausea and vomiting, and it's about 6 episodes of emesis. The patient denies fevers or chills. Denies diarrhea.Patient has no other complaints at this time including shortness of breath, chest pain, headache, or visual changes. - Related Data Home Medications Medication Instructions Recorded Confirmed Cholecalciferol [Vitamin D3] 2,000 unit PO DAILY 04/07/16 07/12/17 Escitalopram [Lexapro] 10 mg PO HS 04/07/16 07/12/17 Multivitamins, Thera [Multivitamin] 1 tab PO DAILY 04/07/16 07/12/17 Niacin (Inositol Niacinate) 500 mg PO DAILY 04/07/16 07/12/17 [Niacin Flush Free 500 mg Cap] buPROPion XL [Wellbutrin Xl] 150 mg PO QAM 02/25/17 07/12/17 Ascorbic Acid [Vitamin C] 1 tab PO DAILY 05/25/17 07/12/17 Ferrous Sulfate [Iron (65 MG 1 tab PO DAILY 05/25/17 07/12/17 Elemental)] Iron 1 tab PO DAILY 07/12/17 07/12/17 Vitamin A 1 tab PO DAILY 07/12/17 07/12/17 Previous Rx's Medication Instructions Recorded Omeprazole [PriLOSEC] 20 mg PO AC-BRKFST #90 cap 03/04/17 Allergies Allergy/AdvReac Type Severity Reaction Status Date / Time No Known Allergies Allergy Verified 08/20/19 06:30 Review of Systems ROS Statement: Those systems with pertinent positive or pertinent negative responses have been documented in the HPI. ROS Other: All systems not noted in ROS Statement are negative. Past Medical History Past Medical History: No Reported History History of Any Multi-Drug Resistant Organisms: None Reported Past Surgical History: Bariatric Surgery, Cholecystectomy, Tubal Ligation Additional Past Surgical History / Comment(s): lap band 2009. COLONOSCOPY revision lap band removed to sleeve gastrectomy 10-17 Past Anesthesia/Blood Transfusion Reactions: No Reported Reaction Past Psychological History: Anxiety, Depression Smoking Status: Never smoker Past Alcohol Use History: None Reported Past Drug Use History: None Reported - Past Family History Mother Family Medical History: Cancer Father Family Medical History: Cancer Sister(s) Family Medical History: Cancer General Exam Limitations: no limitations General appearance: alert, in no apparent distress Head exam: Present: atraumatic, normocephalic, normal inspection Eye exam: Present: normal appearance, PERRL, EOMI. Absent: scleral icterus, conjunctival injection, periorbital swelling ENT exam: Present: normal exam, mucous membranes moist Neck exam: Present: normal inspection, full ROM. Absent: tenderness, meningismus, lymphadenopathy Respiratory exam: Present: normal lung sounds bilaterally. Absent: respiratory distress, wheezes, rales, rhonchi, stridor Cardiovascular Exam: Present: regular rate, normal rhythm, normal heart sounds. Absent: systolic murmur, diastolic murmur, rubs, gallop, clicks GI/Abdominal exam: Present: soft, tenderness (Left upper quadrant and epigastric tenderness, no lower abdominal tenderness. No significant right upper quadrant tenderness.), normal bowel sounds. Absent: distended, guarding, rebound, rigid Back exam: Absent: CVA tenderness (R), CVA tenderness (L) Neurological exam: Present: alert Course Vital Signs 08/20/19 06:27 Temperature 98.2 F Pulse Rate 85 Respiratory 18 Rate Blood Pressure 148/96 O2 Sat by Pulse 100 Oximetry Medical Decision Making - Medical Decision Making This is a 54-year-old female with a history of gastric sleeve by Dr. Lozoya who presents for upper abdominal pain. This is been ongoing on and off for about a month however worsen significantly last night and is not going away. Abdomen does reveal a tender epigastric area. CBC CMP is unremarkable. Urinalysis unremarkable. CT abdomen and pelvis shows incarcerated umbilical hernia with possible strings regulation resulting in small bowel obstruction. On reevaluation of the abdomen a do feel a bulge lateral to the umbilicus. This is somewhat tender. Patient was given Dilaudid and morphine, put in [facility] and reduction was attempted by myself and Dr. Duncan. This was unsuccessful. Lactic is pending. We did consult Dr. Wing as he has seen this patient in the past and he does except this admission. Patient will be kept nothing by mouth on analgesics. - Lab Data Result diagrams: 08/20/19 06:30 08/20/19 06:30 Lab Results 08/20/19 08/20/19 08/20/19 Range/Units 06:30 06:30 06:32 WBC 8.9 (3.8-10.6) k/uL RBC 5.02 (3.80-5.40) m/uL Hgb 14.9 (11.4-16.0) gm/dL Hct 45.6 (34.0-46.0) % MCV 90.7 (80.0-100.0) fL MCH 29.6 (25.0-35.0) pg MCHC 32.6 (31.0-37.0) g/dL RDW 12.8 (11.5-15.5) % Plt Count 257 (150-450) k/uL Neutrophils % 82 % Lymphocytes % 13 % Monocytes % 3 % Eosinophils % 1 % Basophils % 0 % Neutrophils # 7.2 (1.3-7.7) k/uL Lymphocytes # 1.1 (1.0-4.8) k/uL Monocytes # 0.3 (0-1.0) k/uL Eosinophils # 0.1 (0-0.7) k/uL Basophils # 0.0 (0-0.2) k/uL Sodium 139 (137-145) mmol/L Potassium 4.2 (3.5-5.1) mmol/L Chloride 104 (98-107) mmol/L Carbon Dioxide 27 (22-30) mmol/L Anion Gap 8 mmol/L BUN 11 (7-17) mg/dL Creatinine 0.63 (0.52-1.04) mg/dL Est GFR (CKD-EPI)AfAm >90 (>60 ml/min/1.73 sqM) Est GFR (CKD-EPI)NonAf >90 (>60 ml/min/1.73 sqM) Glucose 136 H (74-99) mg/dL Calcium 9.3 (8.4-10.2) mg/dL Total Bilirubin 0.4 (0.2-1.3) mg/dL AST 26 (14-36) U/L ALT 26 (4-34) U/L Alkaline Phosphatase 132 H (38-126) U/L Total Protein 7.8 (6.3-8.2) g/dL Albumin 4.4 (3.5-5.0) g/dL Amylase 72 (30-110) U/L Lipase 63 (23-300) U/L Urine Color Yellow Urine Appearance Clear (Clear) Urine pH 5.5 (5.0-8.0) Ur Specific Lucas 1.022 (1.001-1.035) Urine Protein Negative (Negative) Urine Glucose (UA) Negative (Negative) Urine Ketones Negative (Negative) Urine Blood Negative (Negative) Urine Nitrite Negative (Negative) Urine Bilirubin Negative (Negative) Urine Urobilinogen <2.0 (<2.0) mg/dL Ur Leukocyte Esterase Negative (Negative) Disposition Clinical Impression: Abdominal pain, Incarcerated hernia Disposition: ADMITTED IP TO THIS HOSP Condition: Fair Is patient prescribed a controlled substance at d/c from ED?: No Referrals: Raad Barrios DO [Primary Care Provider] - 1-2 days Time of Disposition: 08:30
[2019-08-20 06:52] LABS: Appearance,Urine Clear (Clear); Bilirubin,Urine Negative (Negative); Blood,Urine Negative (Negative); Color,Urine Yellow; Glucose,Urine (UA) Negative (Negative); Ketones,Urine Negative (Negative); Leukocyte Esterase,Urine Negative (Negative); Nitrite,Urine Negative (Negative); PH, Urine 5.5 (5.0-8.0); Protein,Urine Negative (Negative); Specific Gravity,Urine 1.022 (1.001-1.035); Urobilinogen,Urine <2.0 mg/dL (<2.0)
[2019-08-20 06:52] LABS: Basophils % (A) 0 %; Eosinophils # (A) 0.1 k/uL (0-0.7); Eosinophils % (A) 1 %; HCT 45.6 % (34.0-46.0); HGB 14.9 gm/dL (11.4-16.0); Lymphocytes # (A) 1.1 k/uL (1.0-4.8); Lymphocytes % (A) 13 %; MCH 29.6 pg (25.0-35.0); MCHC 32.6 g/dL (31.0-37.0); MCV 90.7 fL (80.0-100.0); Mean Platelet Volume 7.6; Monocytes # (A) 0.3 k/uL (0-1.0); Monocytes % (A) 3 %; Neutrophils # (A) 7.2 k/uL (1.3-7.7); Neutrophils % (A) 82 %; Platelet Count 257 k/uL (150-450); RBC 5.02 m/uL (3.80-5.40); RDW 12.8 % (11.5-15.5); WBC 8.9 k/uL (3.8-10.6)
[2019-08-20 07:14] LABS: ALT 26 U/L (4-34); AST 26 U/L (14-36); African American GFR (CKD) >90 (>60 ml/min/1.73 sqM); Albumin 4.4 g/dL (3.5-5.0); Alkaline Phosphatase 132 U/L (38-126); Amylase 72 U/L (30-110); Anion Gap 8 mmol/L; Blood Urea Nitrogen 11 mg/dL (7-17); Calcium 9.3 mg/dL (8.4-10.2); Carbon Dioxide 27 mmol/L (22-30); Chloride 104 mmol/L (98-107); Glucose 136 mg/dL (74-99); Non-African American GFR(CKD) >90 (>60 ml/min/1.73 sqM); Potassium 4.2 mmol/L (3.5-5.1); Sodium 139 mmol/L (137-145); Total Bilirubin 0.4 mg/dL (0.2-1.3); Total Protein 7.8 g/dL (6.3-8.2)
--- NOTE | 2019-08-20 07:44 | CT ---
EXAMINATION TYPE: CT abdomen pelvis w con DATE OF EXAM: 08/20/2019 COMPARISON: None HISTORY: periumbilical pain CT DLP: 1650.3 mGycm CONTRAST: CT scan of the abdomen and pelvis is performed with Oral Contrast and with IV Contrast, patient injec montse with 100 mL of Isovue 300. FINDINGS: LUNG BASES-: No visible nodule. No infiltrate. LIVER/GB: Cholecystectomy clips are in place. No space occupying hepatic lesion. Biliary tree is o f normal caliber. PANCREAS: No inflammation. No distinct mass. SPLEEN: No splenic enlargement. No lesion seen. ADRENALS: No nodule. No thickening. KIDNEYS/BLADDER: No hydronephrosis. No nephrolithiasis. Renal cystic change of the mid pole right k idney. Urinary bladder grossly unremarkable. BOWEL: Small bowel obstruction measuring up to 3 cm secondary to umbilical hernia which contains a lo op of small bowel. There is surrounding fluid and attenuation suggesting incarceration and/or strangu lation. Colon is of normal caliber. GENITAL ORGANS: No gross abnormality. LYMPH NODES: No greater than 1cm abdominal or pelvic lymph nodes are appreciated. AORTA: No significant abnormality. OSSEOUS STRUCTURES: No significant abnormality is seen. OTHER: No significant additional abnormality is seen. IMPRESSION: 1. Incarcerated umbilical hernia with possible strangulation resulting in small bowel obstruction. Co rrelate clinically.
[2019-08-20] MEDS ORDERED: MORPHINE SULFATE 4 MG/ML SYRINGE IVP STA (07:54)
[2019-08-20] MEDS ORDERED: NALOXONE 0.4 MG/ML 1 ML VIAL IV PRN (08:22)
[2019-08-20] MEDS ORDERED: MORPHINE SULFATE 2 MG/ML SYRINGE IV PRN (08:22)
[2019-08-20] MEDS ORDERED: ONDANSETRON 4 MG/2 ML VIAL IVP PRN ×2 (08:22→10:15)
[2019-08-20] MEDS: FAMOTIDINE 20 MG/2 ML VIAL IV SCH ×2 (09:44→20:26)
[2019-08-20] MEDS: SODIUM CHLORIDE 0.9% 1,000 ML IV SCH ×3 (09:50→20:26)
--- NOTE | 2019-08-20 10:11 | P.GSHP ---
History of Present Illness H&P Date: 08/20/19 Chief Complaint: Small bowel obstruction 54-year-old female known to our service. Patient with history of lap band followed by conversion to sleeve gastrectomy. Patient states over the last 2 weeks she has had intermittent abdominal pains. Last night the patient says her pain got more severe with radiation to the back. This is been associated with episodes of nausea and vomiting that her bili is. Denies fevers or chills. No shortness of breath. No significant change in bowel habits. Patient had a CAT scan performed this morning which reveals a incarcerated incisional hernia in the supraumbilical location creating bowel obstruction. Lactic acid normal. White blood cell count normal. Patient still having pain. - Review of Systems Comment: The patient denies any acute changes in vision or hearing, no dysphagia or o dynophagia, no chest pain or shortness of breath, no dysuria or hematuria, no headache, no runny nose, no rectal bleeding or melena, no unexplained weight loss Past Medical History Past Medical History: No Reported History History of Any Multi-Drug Resistant Organisms: None Reported Past Surgical History: Bariatric Surgery, Cholecystectomy, Tubal Ligation Additional Past Surgical History / Comment(s): lap band 2008. COLONOSCOPY revision lap band removed to sleeve gastrectomy 02-15 Past Anesthesia/Blood Transfusion Reactions: No Reported Reaction Past Psychological History: Anxiety, Depression Smoking Status: Never smoker Past Alcohol Use History: None Reported Additional Past Alcohol Use History / Comment(s): QUIT SMOKING 1984 Past Drug Use History: None Reported - Past Family History Mother Family Medical History: Cancer Father Family Medical History: Cancer Sister(s) Family Medical History: Cancer Medications and Allergies Home Medications Medication Instructions Recorded Confirmed Type Escitalopram [Lexapro] 10 mg PO HS 04/07/16 08/20/19 History Multivitamins, Thera [Multivitamin] 1 tab PO DAILY 04/07/16 08/20/19 History Niacin (Inositol Niacinate) 500 mg PO DAILY 04/07/16 08/20/19 History [Niacin Flush Free 500 mg Cap] buPROPion XL [Wellbutrin Xl] 150 mg PO DAILY 02/25/17 08/20/19 History Omeprazole [PriLOSEC] 20 mg PO -BRKFST #90 cap 03/04/17 08/20/19 Rx Ergocalciferol [Vitamin D2] 50,000 unit PO MO 08/20/19 08/20/19 History Allergies Allergy/AdvReac Type Severity Reaction Status Date / Time No Known Allergies Allergy Verified 08/20/19 08:51 Surgical - Exam Vital Signs Temp Pulse Resp BP Pulse Ox 98.2 F 85 18 148/96 100 08/20/19 06:27 08/20/19 06:27 08/20/19 06:27 08/20/19 06:27 08/20/19 06:27 Physical exam: General: Well-developed, well-nourished HEENT: Normocephalic, sclerae nonicteric Abdomen: Tender mass supraumbilical with mild distention Extremities: No edema Neuro: Alert and oriented Results - Labs 08/20/19 06:30 08/20/19 06:30 Abnormal Lab Results - Last 24 Hours (Table) 08/20/19 Range/Units 06:30 Glucose 136 H (74-99) mg/dL Alkaline Phosphatase 132 H (38-126) U/L Diabetes panel 08/20/19 Range/Units 06:30 Sodium 139 (137-145) mmol/L Potassium 4.2 (3.5-5.1) mmol/L Chloride 104 (98-107) mmol/L Carbon Dioxide 27 (22-30) mmol/L BUN 11 (7-17) mg/dL Creatinine 0.63 (0.52-1.04) mg/dL Glucose 136 H (74-99) mg/dL Calcium 9.3 (8.4-10.2) mg/dL AST 26 (14-36) U/L ALT 26 (4-34) U/L Alkaline Phosphatase 132 H (38-126) U/L Total Protein 7.8 (6.3-8.2) g/dL Albumin 4.4 (3.5-5.0) g/dL Calcium panel 08/20/19 Range/Units 06:30 Calcium 9.3 (8.4-10.2) mg/dL Albumin 4.4 (3.5-5.0) g/dL Pituitary panel 08/20/19 Range/Units 06:30 Sodium 139 (137-145) mmol/L Potassium 4.2 (3.5-5.1) mmol/L Chloride 104 (98-107) mmol/L Carbon Dioxide 27 (22-30) mmol/L BUN 11 (7-17) mg/dL Creatinine 0.63 (0.52-1.04) mg/dL Glucose 136 H (74-99) mg/dL Calcium 9.3 (8.4-10.2) mg/dL Adrenal panel 08/20/19 Range/Units 06:30 Sodium 139 (137-145) mmol/L Potassium 4.2 (3.5-5.1) mmol/L Chloride 104 (98-107) mmol/L Carbon Dioxide 27 (22-30) mmol/L BUN 11 (7-17) mg/dL Creatinine 0.63 (0.52-1.04) mg/dL Glucose 136 H (74-99) mg/dL Calcium 9.3 (8.4-10.2) mg/dL Total Bilirubin 0.4 (0.2-1.3) mg/dL AST 26 (14-36) U/L ALT 26 (4-34) U/L Alkaline Phosphatase 132 H (38-126) U/L Total Protein 7.8 (6.3-8.2) g/dL Albumin 4.4 (3.5-5.0) g/dL Assessment and Plan (1) Incarcerated incisional hernia Narrative/Plan: 54-year-old female with incarcerated incisional hernia. We'll proceed with urgent repair with possible mesh, possible bowel resection if needed. Risks of bleeding, infection, recurrence, bladder and bowel injury, numbness, nerve inju ry, possible need for bowel resection, anastomotic leak, abscess were discussed with the patient. The patient understands and wishes to proceed. Current Visit: Yes Status: Acute Code(s): K43.0 - INCISIONAL HERNIA WITH OB STRUCTION, WITHOUT GANGRENE SNOMED Code(s): 765493207
[2019-08-20] MEDS ORDERED: ACETAMINOPHEN TAB 325 MG TAB PO PRN (10:15)
[2019-08-20] MEDS: HYDROmorphone 0.5 MG/0.5 ML SYRINGE IVP PRN ×2 (10:50→21:43)
[2019-08-20] MEDS ORDERED: SODIUM CHLORIDE 0.9% 1,000 ML IV ONE (11:26)
[2019-08-20] MEDS ORDERED: HEPARIN SODIUM,PORCINE 5,000 UNIT/ML 1 ML VIAL SQ ONE (11:57)
[2019-08-20] MEDS ORDERED: LIDOCAINE 1% INJ 10MG/ML (20 ML MDV) ONE (12:06)
[2019-08-20] MEDS ORDERED: ROCURONIUM BROMIDE 10 MG/ML 5 ML VIAL IV ONE (12:06)
[2019-08-20] MEDS ORDERED: PROPOFOL 10 MG/ML 20 ML VIAL IV ONE (12:06)
[2019-08-20] MEDS ORDERED: ALFENTANIL 500 MCG/ML 2 ML AMP IV ONE (12:06)
[2019-08-20] MEDS ORDERED: MIDAZOLAM 2 MG/2 ML VIAL ONE (12:06)
[2019-08-20] MEDS ORDERED: SODIUM CHLORIDE 0.9% 100 ML BAG ONE (12:06)
[2019-08-20] MEDS ORDERED: KETOROLAC 30 MG/ML 1 ML VIAL ONE (12:06)
[2019-08-20] MEDS ORDERED: ceFAZolin 1,000 MG VIAL ONE (12:06)
[2019-08-20] MEDS ORDERED: HYDROcodone/APAP 5-325MG 1 EACH TAB PO PRN (13:11)
--- NOTE | 2019-08-20 13:29 | P.OP ---
Date of Procedure: 08/20/19 Procedure(s) Performed: PREOPERATIVE DIAGNOSIS: Incarcerated incisional hernia POSTOPERATIVE DIAGNOSIS: Same PROCEDURE: Incarcerated incisional hernia repair SURGEON: Devora EBL: Minimal ANESTHESIA: Gen. COMPLICATIONS: None OPERATIVE PROCEDURE: Patient placed on the operating table in the supine position. Abdomen was prepped and draped in usual sterile fashion. The previous incision was re-incised extending through our supraumbilical incision around the umbilicus connecting to a small infraumbilical incision scar. Dissection through the subcutaneous tissues took place using electrocautery. A moderate sized hernia was identified. The hernia sac was opened. The patient had approximately 6 inches or so of small intestine present. The bowel was viable however the fluid within the hernia sac was slightly cloudy. The bowel was reduced back into the peritoneal cavity. The area was irrigated with saline. I decided not to place a mesh given the cloudiness of the hernia sac fluid. The umbilicus was raised off the fascia. The fascial defect itself measured 7 x 4 cm oriented horizontally. The hernia sac was carefully dissected down to the level of the fascia where it was excised. The fascia was reapproximated horizontally using interrupted vest over pants mattress sutures with 0 Ethibond's. The folding edge was tacked down using interrupted 0 Ethibond sutures as well. A drain was placed anterior to the fascial closure exiting through the right lower quadrant. This was sutured to the skin using a 3-0 silk stitch. The subcutaneous tissues were closed using 3-0 Vicryl sutures. The skin was closed using jose l. Sterile dressings were applied. DISPOSITION: Stable to recovery room
[2019-08-20] MEDS: PIPERACILLIN-TAZOBACTAM 3.375 GM in SODIUM CHLORIDE 0.9% 100 ML IVPB SCH ×2 (15:45→23:49)
[2019-08-20] MEDS: HEPARIN SODIUM,PORCINE 5,000 UNIT/ML 1 ML VIAL SQ SCH (20:25)
[2019-08-20] MEDS ORDERED: ESCITALOPRAM 10 MG TAB PO SCH (21:00)
--- NOTE | 2019-08-20 23:43 | P.CONS ---
History of Present Illness - Reason for Consult Consult date: 08/20/19 Medical management - Chief Complaint Incarcerated incisional hernia repair - History of Present Illness Patient is a 54-year-old female with a known history of LAP-BAND surgery in 2008, converted to sleeve gastrectomy in 2017, history of cholecystectomy, anxiety/depression presents to ER with the complaints of abdominal pain mainly in the upper abdomen for the past 2-3 weeks intermittently. Patient usually gets better within a few minutes however yesterday night the symptoms are more persistent and patient came to ER with worsening abdominal pain. Pain is mainly sharp without any radiation to the back. It is with nausea and episodes of vomiting 6 mainly bilious. Denied any hematemesis. No melena. No complaints of chest pain or shortness of breath. No cough or sputum production. No fever no chills. No headache or dizziness or lightheadedness. CT of the abdominal pelvis showed incarcerated umbilical hernia with possible strangulation resulting in small bowel obstruction. Correlate clinically. Patient is status post incarcerated hernia repair. Next and laboratory data re viewed. Patient is currently drowsy postoperatively. Review of Systems Constitutional: Patient denies any fever or chills . No generalized weakness or weight loss. Abdomen: Abdominal pain, nausea and vomiting. No diarrhea.. Cardiovascular: Patient denies any chest pain or short of breath no palpitations. Respiratory: patient denied any cough is from production. No shortness of breath Neurologic: Patient denied any numbness or tingling headache. Musculoskeletal: Patient denies any complaints of joint swelling or deformity. Skin: Negative Psychiatric: Negative Endocrine: No heat or cold intolerance. No recent weight gain. Genitourinary: No dysuria or hematuria. All other 14 point ROS negative except the above Past Medical History Past Medical History: No Reported History History of Any Multi-Drug Resistant Organisms: None Reported Past Surgical History: Bariatric Surgery, Cholecystectomy, Tubal Ligation Additional Past Surgical History / Comment(s): lap band 2008. COLONOSCOPY revision lap band removed to sleeve gastrectomy - Past Anesthesia/Blood Transfusion Reactions: No Reported Reaction Past Psychological History: Anxiety, Depression Smoking Status: Never smoker Past Alcohol Use History: None Reported Additional Past Alcohol Use History / Comment(s): QUIT SMOKING 1984 Past Drug Use History: None Reported - Past Family History Mother Family Medical History: Cancer Father Family Medical History: Cancer Sister(s) Family Medical History: Cancer Medications and Allergies Home Medications Medication Instructions Recorded Confirmed Type Escitalopram [Lexapro] 10 mg PO HS 04/07/16 08/20/19 History Multivitamins, Thera [Multivitamin] 1 tab PO DAILY 04/07/16 08/20/19 History Niacin (Inositol Niacinate) 500 mg PO DAILY 04/07/16 08/20/19 History [Niacin Flush Free 500 mg Cap] buPROPion XL [Wellbutrin Xl] 150 mg PO DAILY 02/25/17 08/20/19 History Omeprazole [PriLOSEC] 20 mg PO AC-BRKFST #90 cap 03/04/17 08/20/19 Rx Ergocalciferol [Vitamin D2] 50,000 unit PO MO 08/20/19 08/20/19 History Allergies Allergy/AdvReac Type Severity Reaction Status Date / Time No Known Allergies Allergy Verified 08/20/19 08:51 Physical Exam Vitals: Vital Signs Temp Pulse Pulse Resp BP BP Pulse Ox 08/20/19 13:09 97.1 F L 54 L 16 137/69 97 08/20/19 11:32 98.2 F 58 L 16 122/63 94 L 08/20/19 09:24 98.7 F 70 16 142/88 95 08/20/19 08:42 98.3 F 85 18 118/73 98 08/20/19 06:27 98.2 F 85 18 148/96 100 Intake and Output 08/19/19 08/20/19 08/20/19 22:59 06:59 14:59 Intake Total 400 Output Total 5 Balance 395 Intake: IV 400 Output: Estimated Blood Loss 5 Other: Weight 87.09 kg 87.09 kg PHYSICAL EXAMINATION: Patient is lying in the bed comfortably, no acute distress, awake alert and oriented. Drowsy otherwise. HEENT: Normocephalic. Neck is supple. Pupils reactive. Nostrils clear. Oral cavity is moist. Ears reveal no drainage. Neck reveals no JVD, carotid bruits, or thyromegaly. CHEST EXAMINATION: Trachea is central. Symmetrical expansion. Bibasilar dimin ished air entry. Lung solis clear to auscultation and percussion. CARDIAC: Normal S1, S2 with no gallops. No murmurs ABDOMEN: Soft. Bowel sounds diminished, tenderness over the surgical site. No o rganomegaly. No abdominal bruits. Extremities: reveal no edema. No clubbing or cyanosis Neurologically awake, alert, oriented x3 with well-coordinated movements. No focal deficits noted Skin: No rash or skin lesions. Psychiatric: Coperative. Nonsuicidal Musculoskeletal: No joint swelling or deformity. Normal range of motion. Results CBC & Chem 7: 08/20/19 06:30 08/20/19 06:30 Labs: Abnormal Lab Results - Last 24 Hours (Table) 08/20/19 Range/Units 06:30 Glucose 136 H (74-99) mg/dL Alkaline Phosphatase 132 H (38-126) U/L Assessment and Plan Assessment: Abdominal pain secondary to incarcerated incisional hernia with possible small bowel obstruction History of lap band surgery converted to sleeve gastrectomy in 2017 Morbid obesity BMI 35.1 Anxiety/depression Hyperlipidemia History of cholecystectomy Plan: Patient will be continued on IV hydration and pain management. Continue with home medication including antidepressants. Monitor CBC tomorrow. Encourage incentive spirometry and ambulation. DVT prophylaxis. Further recommendations based on the clinical course. We will continue to follow with you. Thank you for your consult. Time with Patient: Greater than 30
[2019-08-21] MEDS: HYDROmorphone 0.5 MG/0.5 ML SYRINGE IVP PRN ×2 (03:28→09:01)
[2019-08-21 05:32] VITALS: RESP 17
[2019-08-21 07:02] LABS: African American GFR (CKD) >90 (>60 ml/min/1.73 sqM); Anion Gap 4 mmol/L; Blood Urea Nitrogen 12 mg/dL (7-17); Calcium 8.4 mg/dL (8.4-10.2); Carbon Dioxide 29 mmol/L (22-30); Chloride 107 mmol/L (98-107); Glucose 105 mg/dL (74-99); Non-African American GFR(CKD) >90 (>60 ml/min/1.73 sqM); Potassium 3.8 mmol/L (3.5-5.1); Sodium 140 mmol/L (137-145)
[2019-08-21 07:35] LABS: Basophils % (A) 0 %; Eosinophils # (A) 0.4 k/uL (0-0.7); Eosinophils % (A) 5 %; HCT 39.2 % (34.0-46.0); HGB 12.6 gm/dL (11.4-16.0); Lymphocytes # (A) 1.3 k/uL (1.0-4.8); Lymphocytes % (A) 16 %; MCHC 32.1 g/dL (31.0-37.0); MCV 93.7 fL (80.0-100.0); Mean Platelet Volume 7.4; Monocytes # (A) 0.4 k/uL (0-1.0); Monocytes % (A) 5 %; Neutrophils # (A) 5.8 k/uL (1.3-7.7); Neutrophils % (A) 73 %; Platelet Count 227 k/uL (150-450); RBC 4.18 m/uL (3.80-5.40); RDW 13.1 % (11.5-15.5)
[2019-08-21] MEDS: HEPARIN SODIUM,PORCINE 5,000 UNIT/ML 1 ML VIAL SQ SCH (09:00)
[2019-08-21] MEDS: FAMOTIDINE 20 MG/2 ML VIAL IV SCH (09:00)
[2019-08-21] MEDS ORDERED: buPROPion XL 150 MG TAB.ER.24H PO SCH (09:00)
[2019-08-21] MEDS: PIPERACILLIN-TAZOBACTAM 3.375 GM in SODIUM CHLORIDE 0.9% 100 ML IVPB SCH (09:01)
--- NOTE | 2019-08-21 09:55 | P.DS ---
<Natasha Benitez - Last Filed: 08/21/19 09:51> Providers Expected date of discharge: 08/21/19 Hospital Course: 54-year-old female who underwent repair of incarcerated incisional hernia with Dr. Lozoya on 08/20/2019. Patient is doing well postoperatively without any immediate complications. She is tolerating diet without nausea or vomiting. Pain is controlled on oral medications. Vital signs are stable. She is stable for discharge home today with TOÑITO drain. Please see EMR for further hospital course details. Discharge diagnosis 1. Status post repair of incarcerated incisional hernia Nurse practitioner note has been reviewed by physician. Signing provider agrees with the documented findings, assessment, and plan of care. Patient Condition at Discharge: Stable Plan - Discharge Summary New Discharge Prescriptions: New Hydrocodone/Acetaminophen [Chepachet 5-325] 1 tab PO Q6HR PRN #10 tab PRN Reason: Pain Continue Escitalopram [Lexapro] 10 mg PO HS Niacin (Inositol Niacinate) [Niacin Flush Free 500 mg Cap] 500 mg PO DAILY Multivitamins, Thera [Multivitamin (formulary)] 1 tab PO DAILY buPROPion XL [Wellbutrin XL] 150 mg PO DAILY Omeprazole [PriLOSEC] 20 mg PO AC-BRKFST #90 cap Ergocalciferol [Vitamin D2 (DRISDOL)] 50,000 unit PO MO Discharge Medication List Escitalopram [Lexapro] 10 mg PO HS 04/07/16 [History] Multivitamins, Thera [Multivitamin (formulary)] 1 tab PO DAILY 04/07/16 [History] Niacin (Inositol Niacinate) [Niacin Flush Free 500 mg Cap] 500 mg PO DAILY 04/07/16 [History] buPROPion XL [Wellbutrin XL] 150 mg PO DAILY 02/25/17 [History] Omeprazole [PriLOSEC] 20 mg PO AC-BRKFST #90 cap 03/04/17 [Rx] Ergocalciferol [Vitamin D2 (DRISDOL)] 50,000 unit PO MO 08/20/19 [History] Hydrocodone/Acetaminophen [Chepachet 5-325] 1 tab PO Q6HR PRN #10 tab 08/21/19 [Rx] Follow up Appointment(s)/Referral(s): Bertin Lozoya MD [Medical Doctor] - 08/30/19 9:30 am (You will be seen in the office.) Raad Barrios DO [Primary Care Provider] - 08/23/19 9:00 am (This will be a tele health visit via phone.) Patient Instructions/Handouts: Hydrocodone/Acetaminophen (By mouth), [place]- [place] Drain Care (DC), Umbilical Hernia Repair (DC) Activity/Diet/Wound Care/Special Instructions: No driving while taking Chepachet No lifting over 10 pounds You may shower. No soaking or tub baths Very light activity until you are reevaluated at your follow up appointment with your surgeon Keep a log of TOÑITO drain output and bring with you to your follow-up appointment Discharge Disposition: HOME SELF-CARE <Bertin Lozoya - Last Filed: 08/21/19 14:43> Providers Date of admission: 08/20/19 08:24 Attending physician: Bertin Lozoya Consults: 08/20/19 10:15 Consult Physician Routine Consulting Provider: Bailey Finch Consult Reason/Comments: medical management Do you want consulting provider notified?: Yes Primary care physician: Raad Barrios - Discharge Diagnosis(es) (1) Incarcerated incisional hernia Status: Acute
[2019-08-21 11:28] VITALS: BP 94/62; PULSE 75; TEMP 98.8
[2019-08-21] MEDS: SODIUM CHLORIDE 0.9% 1,000 ML IV SCH ×2 (12:04)
[2019-08-21] MEDS ORDERED: FAMOTIDINE 20 MG TAB PO SCH (21:00)
--- NOTE | 2019-08-22 00:22 | P.PN ---
Subjective Progress Note Date: 08/21/19 Principal diagnosis: Abdominal pain secondary to incarcerated incisional hernia with possible small bowel obstruction. Status post repair. Postoperative day 1 Patient is a 54-year-old female with a known history of LAP-BAND surgery in 2009, converted to sleeve gastrectomy in 2017, history of cholecystectomy, anxiety/depression presents to ER with the complaints of abdominal pain mainly in the upper abdomen for the past 2-3 weeks intermittently. Patient usually gets better within a few minutes however yesterday night the symptoms are more persistent and patient came to ER with worsening abdominal pain. Pain is mainly sharp without any radiation to the back. It is with nausea and episodes of vomiting 6 mainly bilious. Denied any hematemesis. No melena. No complaints of chest pain or shortness of breath. No cough or sputum production. No fever no chills. No headache or dizziness or lightheadedness. CT of the abdominal pelvis showed incarcerated umbilical hernia with possible strangulation resulting in small bowel obstruction. Correlate clinically. Patient is status post incarcerated hernia repair. Next and laboratory data reviewed. Patient is currently drowsy postoperatively. 08/21/2019 Patient denied any complaints of chest pain or shortness of breath. Currently tolerating oral diet. Pain is controlled with medications by mouth. Patient has been afebrile. No immediate most operative complications. Otherwise patient is being discharged home today. Continue with current home medications and follow with PCP in the next 3-5 days. Current medications reviewed. Objective - Vital Signs Vital signs: Vital Signs Temp 98.8 F 08/21/19 11:27 Pulse 75 08/21/19 11:27 Resp 17 08/21/19 11:27 BP 94/62 08/21/19 11:27 Pulse Ox 93 L 08/21/19 11:27 Intake & Output 08/20/19 08/21/19 08/21/19 18:59 06:59 18:59 Intake Total 400 2120 Output Total 5 60 Balance 395 2120 -60 Weight 87.09 kg Intake: IV 400 Intake, IV Titration 1400 Amount Piperacillin-Tazobactam 3 200 .375 gm In Sodium Chloride 0.9% 100 ml @ 25 mls/hr IVPB Q8HR [facility] Rx# :[id number] Sodium Chloride 0.9% 1, 1200 000 ml @ 100 mls/hr IV . Q10H [facility] Rx#:[id number] Oral 720 Output: Drainage 60 Right Abdomen 60 Urine 0 Estimated Blood Loss 5 Other: # Voids 1 - Exam PHYSICAL EXAMINATION: Patient is lying in the bed comfortably, no acute distress, awake alert and oriented.. HEENT: Normocephalic. Neck is supple. Pupils reactive. Nostrils clear. Oral cavity is moist. Ears reveal no drainage. Neck reveals no JVD, carotid bruits, or thyromegaly. CHEST EXAMINATION: Trachea is central. Symmetrical expansion. Lung solis clear to auscultation and percussion. CARDIAC: Normal S1, S2 with no gallops. No murmurs ABDOMEN: Soft. Bowel sounds present. Mild soreness at the surgical site.. No organomegaly. No abdominal bruits. Extremities: reveal no edema. No clubbing or cyanosis Neurologically awake, alert, oriented x3 with well-coordinated movements. No focal deficits noted Skin: No rash or skin lesions. Psychiatric: Coperative. Nonsuicidal Musculoskeletal: No joint swelling or deformity. Normal range of motion. - Labs CBC & Chem 7: 08/21/19 05:46 08/21/19 05:46 Labs: Abnormal Lab Results - Last 24 Hours (Table) 08/21/19 Range/Units 05:46 Glucose 105 H (74-99) mg/dL Assessment and Plan Assessment: Abdominal pain secondary to incarcerated incisional hernia with possible small bowel obstruction. Status post repair. Postoperative day 1 History of lap band surgery converted to sleeve gastrectomy in 2017 Morbid obesity BMI 35.1 Anxiety/depression Hyperlipidemia History of cholecystectomy Plan: Patient will be continued on IV hydration and pain management. Continue with home medication including antidepressants. Encourage incentive spirometry and ambulation. DVT prophylaxis. Further recommendations based on the clinical course. Patient is being discharg ed home today.. Time with Patient: Greater than 30
== END 2019-08-21 13:02 | disposition home or self-care (01) | DRG 355 ==
LOC: EC 06:17 → 5NMEDONC 08:24
PROVIDERS: ADMIT Surgery; ATTEND Surgery
PROC: 0WQF0ZZ Repair Abdominal Wall, Open Approach (ICD-10-PCS; principal; 2019-08-20 11:00)
DX: K43.0 Incisional hernia with obstruction, without gangrene (principal); E78.5 Hyperlipidemia, unspecified; F32.9 Major depressive disorder, single episode, unspecified; F41.9 Anxiety disorder, unspecified; K42.0 Umbilical hernia with obstruction, without gangrene; E66.01 Morbid (severe) obesity due to excess calories; Z98.84 Bariatric surgery status; Z90.49 Acquired absence of other specified parts of digestive tract; Z79.899 Other long term (current) drug therapy; Z98.51 Tubal ligation status; Z98.890 Other specified postprocedural states; Z80.9 Family history of malignant neoplasm, unspecified; Z68.35 Body mass index [BMI] 35.0-35.9, adult
CPT/HCPCS: 36415; 74177; 80048; 80053; 81003; 82150; 83605; 83690; 85025; 88302; 96361; 96374; 96375; 99285

== ENCOUNTER 2020-06-23 08:13 | Observation (INO) | payer OTHER, SELFPAY ==
[2020-06-18 14:34] VITALS: BMI 38.9
[~2020-06-23 08:13] MED LIST changes: +ACETAMINOPHEN TAB 500 MG TAB PO PRN; -DEXAMETHASONE SOD PHOSPHATE 10 MG/ML 1 ML VIAL IV ONE; +DEXAMETHASONE SOD PHOSPHATE 4 MG/ML 1 ML VIAL IV ONE; +HEPARIN SODIUM,PORCINE 5,000 UNIT/ML 1 ML VIAL SQ PRN; +LIDOCAINE 1% (10MG/ML) FOR IV START INTRADERMA PRN; -METHYLENE BLUE 30 MG in DEXTROSE 5% IN WATER 500 ML IRRIGATION ONE; -MIDAZOLAM 2 MG/2 ML VIAL IV PRN; -Pre Op ABX Message 1 EACH MISC MISCELLANE ONE; -ceFAZolin 2 GM in SODIUM CHLORIDE 0.9% 100 ML IVPB ONE
[2020-06-23] MEDS ORDERED: ACETAMINOPHEN IV (For NPO) 1,000 MG/100 ML VIAL IVPB ONE (09:02)
--- NOTE | 2020-06-23 09:03 | P.GSHP ---
History of Present Illness H&P Date: 06/23/20 Chief Complaint: Recurrent incisional hernia 55-year-old female known to our service. Patient with history of previous incisional hernia containing a loop of small bowel with bowel obstruction last July. Patient underwent emergent repair without mesh at that time. Later last year the patient noticed a recurrent bulge at the site and was found to have a recurrent hernia there. Mild pain. Increasing somewhat in size. Hernia initially related to previous sleeve gastrectomy extraction site. Past Medical History Past Medical History: Cancer Additional Past Medical History / Comment(s): umbilical hernia, hx of bowel obstruction, hx of skin ca History of Any Multi-Drug Resistant Organisms: None Reported Past Surgical History: Bariatric Surgery, Cholecystectomy, Tubal Ligation Additional Past Surgical History / Comment(s): lap band 2008, COLONOSCOPY, revision lap band removed to sleeve gastrectomy 02-15, incarcerated hernia repair 07/2020 Past Anesthesia/Blood Transfusion Reactions: Postoperative Nausea & Vomiting (PONV) Smoking Status: Former smoker - Past Family History Mother Family Medical History: Cancer Father Family Medical History: Cancer Sister(s) Family Medical History: Cancer Medications and Allergies Home Medications Medication Instructions Recorded Confirmed Type Escitalopram [Lexapro] 10 mg PO HS 04/07/16 06/23/20 History Multivitamins, Thera [Multivitamin 1 tab PO DAILY 04/07/16 06/23/20 History (formulary)] Niacin (Inositol Niacinate) 500 mg PO DAILY 04/07/16 06/23/20 History [Niacin Flush Free 500 mg Cap] buPROPion XL [Wellbutrin XL] 150 mg PO QAM 02/25/17 06/23/20 History Omeprazole [PriLOSEC] 20 mg PO AC-BRKFST #90 cap 03/04/17 06/23/20 Rx Ergocalciferol [Vitamin D2 50,000 unit PO MO 08/20/19 06/23/20 History (DRISDOL)] Allergies Allergy/AdvReac Type Severity Reaction Status Date / Time No Known Allergies Allergy Verified 06/23/20 08:28 Surgical - Exam Vital Signs Temp Pulse Resp BP Pulse Ox 98.1 F 75 16 145/79 97 06/23/20 08:31 06/23/20 08:31 06/23/20 08:31 06/23/20 08:31 06/23/20 08:31 Physical exam: General: Well-developed, well-nourished HEENT: Normocephalic, sclerae nonicteric Abdomen: Nontender, nondistended, reducible recurrent incisional hernia just above umbilicus Extremities: No edema Neuro: Alert and oriented Assessment and Plan (1) Recurrent incisional hernia Narrative/Plan: Will proceed with repair recurrent reducible incisional hernia with mesh. Risks of bleeding, infection, recurrence, bladder and bowel injury, numbness, nerve injury were discussed with the patient. The patient understands and wishes to proceed. Current Visit: Yes Status: Acute Code(s): K43.2 - INCISIONAL HERNIA WITHOUT OBSTRUCTION OR GANGRENE SNOMED Code(s): 328194356
[2020-06-23] MEDS ORDERED: ROCURONIUM 10 MG/ML (5 ML VIAL) IV ONE (09:07)
[2020-06-23] MEDS ORDERED: SUCCINYLCHOLINE CHLORIDE 100 MG/5 ML SYR IV ONE (09:07)
[2020-06-23] MEDS ORDERED: GLYCOPYRROLATE 0.2 MG/ML 2 ML VIAL ONE (09:07)
[2020-06-23] MEDS ORDERED: fentaNYL (PF) 50 MCG/ML 2 ML AMP ONE (09:07)
[2020-06-23] MEDS ORDERED: LIDOCAINE 1% INJ 10MG/ML (20 ML MDV) ONE (09:07)
[2020-06-23] MEDS ORDERED: PROPOFOL 10 MG/ML 20 ML VIAL IV ONE (09:07)
[2020-06-23] MEDS ORDERED: MIDAZOLAM 2 MG/2 ML VIAL ONE (09:07)
[2020-06-23] MEDS ORDERED: NEOSTIGMINE 1 MG/ML 10 ML VIAL ONE (09:07)
[2020-06-23] MEDS ORDERED: BUPIVACAINE (PF) 0.25% 30 ML VIAL SQ ONE ×2 (09:35)
[2020-06-23] MEDS ORDERED: METOCLOPRAMIDE 5 MG/ML 2 ML VIAL IVP PRN (10:28)
[2020-06-23] MEDS ORDERED: oxyCODONE-APAP 5-325MG 1 EACH TAB PO PRN (10:28)
[2020-06-23] MEDS ORDERED: ONDANSETRON 4 MG/2 ML VIAL IVP PRN (10:28)
[2020-06-23] MEDS ORDERED: HYDROmorphone 0.5 MG/0.5 ML SYRINGE IVP PRN (10:28)
[2020-06-23] MEDS ORDERED: NALOXONE 0.4 MG/ML 1 ML VIAL IV PRN (10:28)
[2020-06-23] MEDS ORDERED: ACETAMINOPHEN TAB 325 MG TAB PO PRN (10:28)
--- NOTE | 2020-06-23 10:39 | P.OP ---
Date of Procedure: 06/23/20 Procedure(s) Performed: Preadmission teaching done: Yes Hernia occurence: Recurrent Hernia type: Reducible Hernia location: Supraumbilical Hernia measurements: 4 x 2 cm Mesh measurement: 8 Centimeter round Mesh product name: Bard Ventral X Mesh placement location: Subfascial subperitoneal Fixation type: Ethibond suture Myofascial release: no PREOPERATIVE DIAGNOSIS: Recurrent reducible incisional hernia POSTOPERATIVE DIAGNOSIS: Same PROCEDURE: Recurrent reducible incisional hernia repair with mesh SURGEON: Devora EBL: 20 mL ANESTHESIA: Gen. COMPLICATIONS: None OPERATIVE PROCEDURE: Patient placed on the operating table in the supine position. Abdomen was prepped and draped in usual sterile fashion. The previous incision was re-incised and lengthened superiorly. Dissection through the subcutaneous tissues took place using electrocautery. A moderate sized hernia was identified. The hernia sac was carefully dissected down to the level of the fascia where it was excised. The patient's hernia defect measured 4 x 2 cm. This appeared to be at the left lateral aspect of the previous horizontal fascial hernia closure. The 8 [address] mesh was placed beneath the fascia and sutured to the fascia using trans-fascial 0 Ethibond sutures. Following that the midline fascia was reapproximated horizontally using interrupted mattress 0 Ethibond sutures. The folding edge of the fascial closure was sutured down using 0 Ethibond sutures as well. A drain was placed anterior to the fascial closure exiting through the right lower quadrant. This was sutured to the skin using a 3-0 silk stitch. The subcutaneous tissues were closed using 3-0 Vicryl sutures. The skin was closed using jose l. Sterile dressings were applied. DISPOSITION: Stable to recovery room
[2020-06-23] MEDS: HYDROmorphone 0.5 MG/0.5 ML SYRINGE IVP PRN ×4 (10:42→11:24)
[2020-06-23] MEDS ORDERED: diphenhydrAMINE 50 MG/ML 1 ML VIAL IVP ONE (11:19)
[2020-06-23] MEDS ORDERED: KETOROLAC 15 MG/ML 1 ML VIAL IVP ONE (11:20)
[2020-06-23] MEDS: KETOROLAC 15 MG/ML 1 ML VIAL IVP SCH ×3 (11:26→23:25)
[2020-06-23 15:21] VITALS: RESP 16
[2020-06-23] MEDS: D5-0.45% NACL WITH KCL 20MEQ/L 1,000 ML IV SCH ×2 (15:54→20:33)
[2020-06-23] MEDS: HEPARIN SODIUM,PORCINE 5,000 UNIT/ML 1 ML VIAL SQ SCH ×2 (16:01→23:25)
[2020-06-23] MEDS: DOCUSATE 100 MG CAP PO SCH (20:30)
[2020-06-23] MEDS: FAMOTIDINE 20 MG TAB PO SCH (20:30)
[2020-06-23] MEDS ORDERED: ESCITALOPRAM 10 MG TAB PO SCH (21:00)
[2020-06-24] MEDS: D5-0.45% NACL WITH KCL 20MEQ/L 1,000 ML IV SCH (02:47)
[2020-06-24] MEDS: KETOROLAC 15 MG/ML 1 ML VIAL IVP SCH ×2 (05:26→12:31)
[2020-06-24] MEDS: FAMOTIDINE 20 MG TAB PO SCH (08:14)
[2020-06-24] MEDS: HEPARIN SODIUM,PORCINE 5,000 UNIT/ML 1 ML VIAL SQ SCH (08:14)
[2020-06-24] MEDS: DOCUSATE 100 MG CAP PO SCH (08:15)
[2020-06-24 08:53] VITALS: TEMP 98.6
[2020-06-24] MEDS ORDERED: PANTOPRAZOLE 40 MG/10 ML VIAL IV SCH (09:00)
[2020-06-24] MEDS ORDERED: buPROPion XL 150 MG TAB.ER.24H PO SCH (09:00)
[2020-06-24 14:17] VITALS: BP 126/61; PULSE 80
--- NOTE | 2020-06-24 15:30 | P.CONS ---
History of Present Illness - Reason for Consult Management of depression - History of Present Illness This is a pleasant 55-year-old female is admitted for incisional hernia repair patient underwent elective surgery clinically doing well denied any pain at this time denied any nausea was having mild soreness in the surgical site area. Patient had a previous sleeve gastrectomy and the incisional site has a hernia which is repeated today. Patient denied any fever chills dysuria doesn't have any Harp catheter at this time. Did not pass gas did not move her bowel yet but the does have bowel sounds presently on clear liquid diet. Review of Systems REVIEW OF SYSTEMS: CONSTITUTIONAL: No fever, no malaise, no fatigue. HEENT: No recent visual problems or hearing problems. Denied any sore throat. CARDIOVASCULAR: No chest pain, orthopnea, PND, no palpitations, no syncope. PULMONARY: No shortness of breath, no cough, no hemoptysis. GASTROINTESTINAL: No diarrhea, no nausea, no vomiting. NEUROLOGICAL: No headaches, no weakness, no numbness. HEMATOLOGICAL: Denies any bleeding or petechiae. GENITOURINARY: Denies any burning micturition, frequency, or urgency. MUSCULOSKELETAL/RHEUMATOLOGICAL: Denies any joint pain, swelling, or any muscle pain. ENDOCRINE: Denies any polyuria or polydipsia. The rest of the 14-point review of systems is negative. Past Medical History Past Medical History: Cancer Additional Past Medical History / Comment(s): umbilical hernia, hx of bowel obstruction, hx of skin ca History of Any Multi-Drug Resistant Organisms: None Reported Past Surgical History: Bariatric Surgery, Cholecystectomy, Tubal Ligation Additional Past Surgical History / Comment(s): lap band 2008, COLONOSCOPY, revision lap band removed to sleeve gastrectomy 02-15, incarcerated hernia repair 07/2020 Past Anesthesia/Blood Transfusion Reactions: Postoperative Nausea & Vomiting (PONV) Past Psychological History: Anxiety, Depression Smoking Status: Former smoker Past Alcohol Use History: None Reported Additional Past Alcohol Use History / Comment(s): QUIT SMOKING 1984 Past Drug Use History: None Reported - Past Family History Mother Family Medical History: Cancer Father Family Medical History: Cancer Sister(s) Family Medical History: Cancer Medications and Allergies Home Medications Medication Instructions Recorded Confirmed Type Escitalopram [Lexapro] 10 mg PO HS 04/07/06/23/20 History Multivitamins, Thera [Multivitamin 1 tab PO DAILY 04/07/16 06/23/20 History (formulary)] Niacin (Inositol Niacinate) 500 mg PO DAILY 04/07/16 06/23/20 History [Niacin Flush Free 500 mg Cap] buPROPion XL [Wellbutrin XL] 150 mg PO QAM 02/25/17 06/23/20 History Omeprazole [PriLOSEC] 20 mg PO AC-BRKFST #90 cap 03/04/17 06/23/20 Rx Ergocalciferol [Vitamin D2 50,000 unit PO MO 08/20/19 06/23/20 History (DRISDOL)] oxyCODONE HCL [OxyIR] 5 mg PO Q6H PRN 3 Days #6 tab 06/23/20 Rx Allergies Allergy/AdvReac Type Severity Reaction Status Date / Time No Known Allergies Allergy Verified 06/23/20 08:28 Physical Exam Vitals: Vital Signs Temp Pulse Resp BP Pulse Ox 06/24/20 14:00 80 16 126/61 95 06/24/20 08:05 98.6 F 65 16 126/72 95 06/24/20 02:00 98 F 53 L 16 115/57 95 06/23/20 20:10 98.2 F 63 16 108/59 95 Intake and Output 06/24/20 06/24/20 06/24/20 06:59 14:59 22:59 Intake Total 120 Output Total 820 45 Balance -820 75 Intake: Oral 120 Output: Drainage 20 45 Abdomen 20 45 Urine 800 Other: # Voids 1 1 PHYSICAL EXAMINATION: GENERAL: The patient is alert and oriented x3, not in any acute distress. Well developed, well nourished. HEENT: Pupils are round and equally reacting to light. EOMI. No scleral icterus. No conjunctival pallor. Normocephalic, atraumatic. No pharyngeal erythema. No thyromegaly. CARDIOVASCULAR: S1 and S2 present. No murmurs, rubs, or gallops. PULMONARY: Chest is clear to auscultation, no wheezing or crackles. ABDOMEN: Slightly distended abdominal binder in place does have bowel sounds although sluggish MUSCULOSKELETAL: No joint swelling or deformity. EXTREMITIES: No cyanosis, clubbing, or pedal edema. NEUROLOGICAL: Gross neurological examination did not reveal any focal deficits. SKIN: No rashes. Assessment and Plan Plan: -Incisional hernia repair: Pain is well controlled continue with present regimen due to prophylaxis as per primary service -Depression patient was started on her home medications -Hyperlipidemia
--- NOTE | 2020-06-24 18:00 | P.DS ---
Providers Date of admission: 06/23/20 23:55 Expected date of discharge: 06/24/20 Attending physician: Bertin Lozoya Consults: 06/24/20 09:44 Consult Physician Routine Consulting Provider: Vijay Fonseca Consult Reason/Comments: medical management Do you want consulting provider notified?: Yes Primary care physician: Raad Barrios - Discharge Diagnosis(es) (1) Recurrent incisional hernia Patient minute yesterday after elective repair incisional hernia. Doing well today. Pain is well-controlled. Drain is serosanguineous. She would like to go home. Vital signs are stable. Will discharge. Follow-up one week. Drain will be left in place. Status: Acute Plan - Discharge Summary Discharge Rx Participant: No New Discharge Prescriptions: New oxyCODONE HCL [OxyIR] 5 mg PO Q6H PRN 3 Days #6 tab PRN Reason: Breakthrough Pain No Action Escitalopram [Lexapro] 10 mg PO HS Niacin (Inositol Niacinate) [Niacin Flush Free 500 mg Cap] 500 mg PO DAILY Multivitamins, Thera [Multivitamin (formulary)] 1 tab PO DAILY buPROPion XL [Wellbutrin XL] 150 mg PO QAM Omeprazole [PriLOSEC] 20 mg PO AC-BRKFST #90 cap Ergocalciferol [Vitamin D2 (DRISDOL)] 50,000 unit PO MO Discharge Medication List Escitalopram [Lexapro] 10 mg PO HS 04/07/16 [History] Multivitamins, Thera [Multivitamin (formulary)] 1 tab PO DAILY 04/07/16 [History] Niacin (Inositol Niacinate) [Niacin Flush Free 500 mg Cap] 500 mg PO DAILY 04/07/16 [History] buPROPion XL [Wellbutrin XL] 150 mg PO QAM 02/25/17 [History] Omeprazole [PriLOSEC] 20 mg PO AC-BRKFST #90 cap 03/04/17 [Rx] Ergocalciferol [Vitamin D2 (DRISDOL)] 50,000 unit PO MO 08/20/19 [History] oxyCODONE HCL [OxyIR] 5 mg PO Q6H PRN 3 Days #6 tab 06/23/20 [Rx] Follow up Appointment(s)/Referral(s): Bertin Lozoya MD [Medical Doctor] - 07/02/20 2:45 am Activity/Diet/Wound Care/Special Instructions: Regular diet as tolerated. drink fluids. Keep it online retailer until passing gas well. Activity, no heavy lifting.(nothing over 10lbs per Dr Lozoya) no pushing or pulling . nothing strenuous. . follow any other limitation set by your surgeon. no tub baths or soaks. May shower, wrap sekou site for shower. Call your Dr with any fever, chills. increased redness or discolored drainage from your incision site, sudden increase or concerning drainage from your sekou drain, increased pain not controlled with your pain meds or any concerns Wear your abdominal binder when up Last received toradol at noon. ( same family as femi) Keep dressing on till Tuesday and then change daily with 4x4 gauze refer to care site sheet to record output Discharge Disposition: HOME SELF-CARE
== END 2020-06-24 15:30 | disposition home or self-care (01) ==
LOC: OR 08:13 → 6PED 10:46 → OR 23:55
PROVIDERS: ADMIT Surgery; ATTEND Surgery
DX: K43.2 Incisional hernia without obstruction or gangrene (principal); F32.9 Major depressive disorder, single episode, unspecified; F41.9 Anxiety disorder, unspecified; E78.5 Hyperlipidemia, unspecified; Z79.899 Other long term (current) drug therapy; Z98.84 Bariatric surgery status; Z85.828 Personal history of other malignant neoplasm of skin; Z90.49 Acquired absence of other specified parts of digestive tract; Z98.51 Tubal ligation status; Z98.890 Other specified postprocedural states; Z87.19 Personal history of other diseases of the digestive system; Z87.891 Personal history of nicotine dependence; Z91.89 Other specified personal risk factors, not elsewhere classified; Z80.9 Family history of malignant neoplasm, unspecified
CPT/HCPCS: 88302

== ENCOUNTER → 2020-08-13 | Outpatient (CLI) | payer OTHER ==
--- NOTE | 2020-08-18 10:54 | MM ---
Reason for exam: screening (asymptomatic). Last mammogram was performed 1 year and 4 months ago. History: Patient is postmenopausal, has history of other cancer at age 54, and has history of endometrial cancer at age 52. Physical Findings: A clinical breast exam by your physician is recommended on an annual basis and results should be correlated with mammographic findings. MG Screening Mammo w CAD Bilateral CC and MLO view(s) were taken. Prior study comparison: April 19, 2019, bilateral MG screening mammo w CAD. April 14, 2018, bilateral MG screening mammo w CAD. The breast tissue is almost entirely fat. No significant changes when compared with prior studies. ASSESSMENT: Negative, BI-RAD 1 RECOMMENDATION: Routine screening mammogram of both breasts in 1 year.
== END | disposition home or self-care (01) ==
LOC: RADMAMWWP 15:09
PROVIDERS: ATTEND Family Medicine
DX: Z12.31 Encounter for screening mammogram for malignant neoplasm of breast (principal)
CPT/HCPCS: 77067

== ENCOUNTER → 2021-10-29 | Outpatient (CLI) | payer OTHER ==
--- NOTE | 2021-10-30 13:56 | MM ---
Reason for Exam: Screening (asymptomatic). Last mammogram was performed 1 year(s) and 2 month(s) ago. Patient History: Menarche at age 18. First Full-Term at age 20. Postmenopausal. Risk Values: [place] 5 year model risk: 0.8%. NCI Lifetime model risk: 5.5%. Prior Study Comparison: 04/14/2018 Bilateral Screening Mammogram, [facility]. 04/19/2019 Bilateral Screening Mammogram, [facility]. 08/13/2020 Bilateral Screening Mammogram, [facility]. Tissue Density: There are scattered fibroglandular densities. Findings: Analyzed By CAD. No suspicious groups of microcalcifications, spiculated or lobular masses, architectural distortion or other secondary signs of malignancy are mammographically apparent. Overall Assessment: Benign, BI-RAD 2 Management: Screening Mammogram of both breasts in 1 year. A negative mammogram report should not preclude additional follow up of suspicious palpable abnormalities. Patient should continue monthly self breast exam. A clinical breast exam by your physician is recommended on an annual basis and results should be correlated with mammographic findings. Electronically signed and approved by: Steve Gaming D.O. Radiologis
== END | disposition home or self-care (01) ==
LOC: RADMAMWWP 14:56
PROVIDERS: ATTEND Family Medicine
DX: Z12.31 Encounter for screening mammogram for malignant neoplasm of breast (principal); Z78.0 Asymptomatic menopausal state
CPT/HCPCS: 77067

== ENCOUNTER → 2022-11-11 | Outpatient (CLI) | payer OTHER ==
--- NOTE | 2022-11-12 21:52 | MM ---
Reason for Exam: Screening (asymptomatic). Last mammogram was performed 1 year(s) and 1 month(s) ago. Patient History: Menarche at age 18. First Full-Term at age 20. Postmenopausal. Risk Values: [place] 5 year model risk: 0.8%. NCI Lifetime model risk: 5.3%. Prior Study Comparison: 04/19/2019 Bilateral Screening Mammogram, [facility]. 08/13/2020 Bilateral Screening Mammogram, [facility]. 10/29/2021 Bilateral MG screening mammo w CAD, [facility]. Tissue Density: The breast tissue is almost entirely fat. Findings: Analyzed By CAD. There is no suspicious group of microcalcifications or new suspicious mass in either breast. Overall Assessment: Negative, BI-RAD 1 Management: Screening Mammogram of both breasts in 1 year. . Patient should continue monthly self-breast exams. A clinical breast exam by your physician is recommended on an annual basis. This exam should not preclude additional follow-up of suspicious palpable abnormalities. Note on Juana scores and lifetime risk: 1. A Juana score greater than 3% is considered moderate risk. If this is the case, consider specialist referral to assess eligibility for a risk reducing agent. 2. If overall lifetime risk for the development of breast cancer is 20% or higher, the patient may qualify for future screening with alternating mammogram and breast MRI. Electronically signed and approved by: Kody Elliott M.D. Radiologist
== END | disposition home or self-care (01) ==
LOC: RADMAMWWP 15:17
PROVIDERS: ATTEND Family Medicine
DX: Z12.31 Encounter for screening mammogram for malignant neoplasm of breast (principal); Z78.0 Asymptomatic menopausal state
CPT/HCPCS: 77063; 77067

== ENCOUNTER → 2023-12-06 | Outpatient (CLI) | payer BC ==
--- NOTE | 2024-01-03 08:36 | MM ---
Reason for Exam: Screening (asymptomatic). Last mammogram was performed 1 year(s) and 1 month(s) ago. Patient History: Menarche at age 18. First Full-Term at age 20. Postmenopausal. Risk Values: [place] 5 year model risk: 0.8%. NCI Lifetime model risk: 5.2%. Prior Study Comparison: 08/13/2020 Bilateral Screening Mammogram, [facility]. 10/29/2021 Bilateral MG screening mammo w CAD, [facility]. 11/11/2022 Bilateral MG 3D screening mammo w/cad, [facility]. Tissue Density: The breasts are almost entirely fatty. Findings: Analyzed By CAD. Right breast: There is no suspicious group of microcalcifications or new suspicious mass. Left breast: There is no suspicious group of microcalcifications or new suspicious mass. Overall Assessment: Negative, BI-RAD 1 Management: Screening Mammogram of both breasts in [address] [facility] will attempt to contact patient to return for supplemental views and ultrasound if indicated. Patient should continue monthly self-breast exams. A clinical breast exam by your physician is recommended on an annual basis. This exam should not preclude additional follow-up of suspicious palpable abnormalities. Note on Juana scores and lifetime risk: 1. A Juana score greater than 3% is considered moderate risk. If this is the case, consider specialist referral to assess eligibility for a risk reducing agent. 2. If overall lifetime risk for the development of breast cancer is 20% or higher, the patient may qualify for future screening with alternating mammogram and breast MRI. Electronically signed and approved by: Brett Torre DO
== END | disposition home or self-care (01) ==
LOC: RADMAMWWP 14:03
PROVIDERS: ATTEND Family Medicine
DX: Z12.31 Encounter for screening mammogram for malignant neoplasm of breast (principal); Z78.0 Asymptomatic menopausal state
CPT/HCPCS: 77063; 77067